=== PATIENT | female | born 1980 | race Caucasian/White ===

== ENCOUNTER 2017-04-14 15:03 | Emergency (ER) | payer MEDICARE, MEDICAID ==
[2017-04-14 15:09] VITALS: BP 129/85
[2017-04-14] MEDS ORDERED: CYCLOBENZAPRINE HCL 10 MG TABLET PO ONE (16:33)
[2017-04-14] MEDS ORDERED: KETOROLAC TROMETHAMINE INJ/PF 30 MG/1 ML SDV IM ONE (16:33)
--- NOTE | 2017-04-14 16:33 | ER Document Report ---
ED General - General Chief Complaint: Sore Throat Stated Complaint: BACK PAIN Time Seen by Provider: 04/14/17 16:08 TRAVEL OUTSIDE OF THE [place] IN LAST 30 DAYS: No - HPI Onset: Other - back pain has been for approx 3 days, left leg to her knee. she states it is consistent with her sciatica. Admits to nasal congestion and dry cough for a week since she moved into and apartment with "mold" thats has not been tested. Associated symptoms: Allergy/hay fever, Nonproductive cough, Rhinnorhea, Sore throat. denies: Chest pain, Fever, Shortness of breath - Related Data Allergies/Adverse Reactions: amoxicillin trihydrate [From Augmentin] Allergy (Severe, Verified 04/14/17 15:09 ) rash and swelling asenapine maleate [From Saphris] Allergy (Severe, Verified 04/14/17 15:09) suicidal ideation Potassium Clavulanate * [From Augmentin] Allergy (Severe, Verified 04/14/17 15: 09) rash and swelling Sulfa (Sulfonamide Antibiotics) Allergy (Mild, Verified 04/14/17 15:09) codeine [Codeine] Allergy (Unknown, Verified 04/14/17 15:09) rash sulfur [From Sulfur-8] Allergy (Unknown, Verified 04/14/17 15:09) Hallucinations Past Medical History - Social History Smoking Status: Never Smoker Family History: Reviewed & Not Pertinent Patient has suicidal ideation: No Patient has homicidal ideation: No Pulmonary Medical History: Denies: Hx Asthma Renal/ Medical History: Denies: Hx Peritoneal Dialysis Psychiatric Medical History: Reports: Hx Anxiety, Hx Bipolar Disorder, Hx Depression - anxiety Past Surgical History: Reports: Hx Section - x2, Hx Cholecystectomy, Hx Gynecologic Surgery - tubal, Hx Tubal Ligation - Immunizations Immunizations up to date: Yes Hx Diphtheria, Pertussis, Tetanus Vaccination: Yes Review of Systems - Review of Systems Constitutional: No symptoms reported EENT: See HPI Cardiovascular: No symptoms reported Respiratory: See HPI Gastrointestinal: No symptoms reported Musculoskeletal: See HPI Skin: No symptoms reported -: Yes All other systems reviewed and negative Physical Exam - Vital signs Vitals: Temp Pulse Resp BP Pulse Ox 98.2 F 102 H 20 129/85 H 98 04/14/17 15:08 04/14/17 15:08 04/14/17 15:08 04/14/17 15:08 04/14/17 15:08 - General General appearance: Appears well, Alert In distress: None - HEENT Head: Normocephalic, Atraumatic Eyes: Normal Conjunctiva: Normal Extraocular movements intact: Yes Eyelashes: Normal Pupils: PERRL Ears: Normal External canal: Normal Tympanic membrane: Normal Sinus: Normal Nasal: Normal Mouth/Lips: Normal Mucous membranes: Normal Pharynx: Normal. No: Peritonsillar abscess, Retropharyngeal abscess, Potential airway comprom. Neck: Normal - Respiratory Respiratory status: No respiratory distress Chest status: Nontender Breath sounds: Normal Chest palpation: Normal - Cardiovascular Rhythm: Regular Heart sounds: Normal auscultation, S1 appreciated, S2 appreciated Murmur: No Gallop: None auscultated Pulses: Normal: Radial Normal capillary refill: Yes - Back Back: Normal, Nontender. No: Deformity/step-off, CVA tenderness, Vertebra tenderness, Scars, Scoliosis, Wounds - Extremities General upper extremity: Normal inspection, Nontender, Normal color, Normal ROM , Normal strength, Normal temperature General lower extremity: Normal inspection, Nontender, Normal color, Normal ROM , Normal strength, Normal temperature, Normal weight bearing - Neurological Neuro grossly intact: Yes Cognition: Normal Orientation: AAOx4 Germain Coma Scale Eye Opening: Spontaneous Germain Coma Scale Verbal: Oriented Germain Coma Scale Motor: Obeys Commands Germain Coma Scale Total: 15 Course - Re-evaluation Re-evalutation: 04/14/17 21:16 The patient presents with low back pain without signs of spinal cord compression , cauda equina syndrome, infection, aneurysm, or other serious etiology. The patient is neurologically intact. Given the extremely low risk of these diagnoses further testing and evaluation for these possibilities does not appear to be indicated at this time. The patient has been instructed to return if the symptoms worsen or change in any way. Patient educated on management of with [id number] antihistamine, to move out of her home until cleared by a mold specialist and stay with family. Patient is agreeable with plan. - Vital Signs Vital signs: Temp Pulse Resp BP Pulse Ox 98.2 F 102 H 20 129/85 H 98 04/14/17 15:08 04/14/17 15:08 04/14/17 15:08 04/14/17 15:08 04/14/17 15:08 Discharge - Discharge Clinical Impression: Rhinitis Qualifiers: Rhinitis type: unspecified Chronicity: acute Qualified Code(s): J00 - Acute nasopharyngitis [common cold] Sciatica Qualifiers: Laterality: left Qualified Code(s): M54.32 - Sciatica, left side Condition: Good Disposition: HOME, SELF-CARE Instructions: Hay Fever ([facility]), OTC Antihistamines ([facility]) Additional Instructions: LOW BACK PAIN: Three out of every four people will have an episode of disabling back pain during their lifetime. Most commonly the pain is due to straining of the muscles and ligaments in the low back. Usual treatment includes: (1) Rest on a firm surface. Avoid lying on your stomach. (2) Ice pack the painful area. After a few days, gentle heat may be used intermittently to relax the area, or ice packs can be continued. (3) Medication may be needed -- muscle relaxers and antiinflammatory medicines are commonly used. (4) As the back improves, exercises are prescribed to strengthen the back and abdominal muscles. Your doctor will advise you on the proper care for your back at each stage in your recovery. You may be better in a few days -- or healing may take several weeks. If new symptoms of a "herniated disc" (radiation of pain, numbness, or tingling down the back of the leg or weakness in the leg) occur, you should be re-examined. Further testing may be necessary. PAIN MEDICATION INJECTION: You have received an injection of a pain medication. You should experience significant pain relief within 45 minutes. If this injection was a narcotic -- it will impair your judgement, slow your reaction time and make you sleepy (as well as relieve your pain). Narcotics also can cause nausea. You should not drive, work with machinery, or perform any task requiring mental alertness until all effects of the medication are gone -- six to eight hours. Do not take any alcohol, or sedatives, and do not take any other medication without checking with your physician. MUSCLE RELAXERS: Muscle relaxing medications are usually prescribed for acute muscle spasm or injury to the neck and back. They are often combined with antiinflammatory pain medication for increased relief. You may stop the muscle relaxer when the pain and stiffness have improved. Start the medication again if spasms recur. Muscle relaxers may cause drowsiness, especially with the first dose. Do not operate machinery or drive while under the effects of the medication. Most muscle relaxers last up to 24 hours. Do not combine the medication with alcohol. ICE PACKS: Apply ice packs frequently against the painful area. Many different schedules are recommended, such as "20 minutes on, 20 minutes off" or "one hour ice, two hours rest." If you need to work, you may need to go longer between ice treatments. You should plan to have the area ice packed AT LEAST one fourth of the time. The ice should be applied over the wrap, tape, or splint, or over a layer of cloth -- not directly against the skin. Some ice bags have a built-in cloth and can be put directly on the skin. WARM PACKS: After approximately two days, apply gentle heat (such as a heating pad or hot water bottle) for about 20 to 30 minutes about every two hours -- at least four times daily. Warmth and elevation will help you make a more rapid recovery , and will ease the pain considerably. Do not use HOT heat, and never apply heat for longer than 30 minutes. The continuous heat can invisibly damage skin and muscles -- even when no burn is seen on the surface. Damaged muscles can make you MORE sore. FOLLOW-UP CARE: If you have been referred to a physician for follow-up care, call the physician s office for an appointment as you were instructed or within the next two days. If you experience worsening or a significant change in your symptoms, notify the physician immediately or return to the Emergency Department at any time for re-evaluation. Prescriptions: Cyclobenzaprine HCl [Flexeril 10 mg Tablet] 10 mg PO TIDP PRN #15 tab PRN Reason: Ibuprofen [Motrin 800 mg Tablet] 800 mg PO Q8H PRN #30 tab PRN Reason: Methylprednisolone [Medrol Dosepack (4 mg/Tab) 21 Tab/Dosepak] 4 mg PO ASDIR PRN #21 tab.ds.pk PRN Reason: Referrals: YECENIA ALBA MD [NO LOCAL MD] - Follow up as needed
== END 2017-04-14 16:56 | disposition home or self-care (01) ==
LOC: ER 15:03
DX: J00 Acute nasopharyngitis [common cold] (principal); M54.42 Lumbago with sciatica, left side; R05 Cough; Z88.0 Allergy status to penicillin; Z88.2 Allergy status to sulfonamides; Z88.5 Allergy status to narcotic agent; Z88.8 Allergy status to other drugs, medicaments and biological substances; Z77.120 Contact with and (suspected) exposure to mold (toxic)
CPT/HCPCS: 99283; 96372; A9270; J1885

== ENCOUNTER 2017-06-19 08:14 | Emergency (ER) | payer MEDICARE, MEDICAID ==
[2017-06-19] MEDS ORDERED: KETOROLAC TROMETHAMINE INJ/PF 30 MG/1 ML SDV IV ONE (09:23)
[2017-06-19 09:40] LABS: ANION GAP 14 (5-19); BLOOD UREA NITROGEN 10 mg/dL (7-20); CARBON DIOXIDE 21 mmol/L (22-30); CHLORIDE 105 mmol/L (98-107); CREATINE KINASE 75 U/L (30-135); GLUCOSE 85 mg/dL (75-110); POTASSIUM 4.7 mmol/L (3.6-5.0); SODIUM 139.6 mmol/L (137-145)
--- NOTE | 2017-06-19 10:13 | ER Document Report ---
ED General - General Chief Complaint: Back Pain Stated Complaint: BACK PAIN Time Seen by Provider: 06/19/17 09:13 Information source: Patient Notes: Patient is a 37-year-old female who presents today with but she states is some chronic lower back pain. She recently moved here in 2 months ago and does not have a primary care physician. Patient states that she started to have some bilateral arm pain for the last 2 weeks. She denies any systemic symptoms such as fever, headache, neck pain, rash, vomiting, fatigue, or diarrhea. She does state that she discontinue taking Prozac 3 weeks ago but was started on Lexapro. Patient denies any family history of autoimmune disorders or diseases. TRAVEL OUTSIDE OF THE [place] IN LAST 30 DAYS: No - HPI Onset: Other - See above Onset/Duration: Gradual Quality of pain: Achy Severity: Mild Pain Level: 1 Associated symptoms: Other - See above Exacerbated by: Movement Relieved by: Remaining still Similar symptoms previously: Yes Recently seen / treated by doctor: Yes - Related Data Allergies/Adverse Reactions: amoxicillin trihydrate [From Augmentin] Allergy (Severe, Verified 06/19/17 09:19 ) rash and swelling asenapine maleate [From Saphris] Allergy (Severe, Verified 06/19/17 09:19) suicidal ideation Potassium Clavulanate * [From Augmentin] Allergy (Severe, Verified 06/19/17 09: 19) rash and swelling Sulfa (Sulfonamide Antibiotics) Allergy (Mild, Verified 06/19/17 09:19) codeine [Codeine] Allergy (Unknown, Verified 06/19/17 09:19) rash sulfur [From Sulfur-8] Allergy (Unknown, Verified 06/19/17 09:19) Hallucinations Past Medical History - General Information source: Patient - Social History Smoking Status: Never Smoker Cigarette use (# per day): No Chew tobacco use (# tins/day): No Smoking Education Provided: No Frequency of alcohol use: None Drug Abuse: None Family History: Reviewed & Not Pertinent Patient has suicidal ideation: No Patient has homicidal ideation: No Pulmonary Medical History: Denies: Hx Asthma Renal/ Medical History: Denies: Hx Peritoneal Dialysis Psychiatric Medical History: Reports: Hx Anxiety, Hx Bipolar Disorder, Hx Depression - anxiety Past Surgical History: Reports: Hx Section - x2, Hx Cholecystectomy, Hx Gynecologic Surgery - tubal, Hx Tubal Ligation - Immunizations Immunizations up to date: Yes Hx Diphtheria, Pertussis, Tetanus Vaccination: Yes Review of Systems - Review of Systems Constitutional: denies: Fever EENT: denies: Eye discharge, Nose discharge Cardiovascular: denies: Chest pain, Palpitations Respiratory: denies: Short of breath Gastrointestinal: denies: Vomiting Genitourinary: denies: Dysuria Musculoskeletal: denies: Leg swelling Skin: Other - no hives. denies: Rash Neurological/Psychological: Other - no slurred speech -: Yes All other systems reviewed and negative Physical Exam - Vital signs Vitals: Temp Pulse Resp BP Pulse Ox 98 F 71 16 125/79 97 06/19/17 08:25 06/19/17 08:25 06/19/17 08:25 06/19/17 08:25 06/19/17 08:25 Notes: Reviewed vital signs and nursing note as charted by RN. CONSTITUTIONAL: Alert and oriented and responds appropriately to questions. Well -appearing; well-nourished HEAD: Normocephalic; atraumatic EYES: Sclerae non-icteric ENT: Normal nose; no rhinorrhea; moist mucous membranes; pharynx without lesions noted NECK: Supple without meningismus; non-tender CARD: Regular rate and rhythm; no murmurs RESP: Normal chest excursion without splinting or tachypnea; breath sounds clear and equal bilaterally ABD/GI: Normal bowel sounds; non-distended; soft, non-tender BACK: The back appears normal and is non-tender to palpation, there is no CVA tenderness EXT: Normal ROM in all joints; non-tender to palpation; no cyanosis, no effusions, no edema SKIN: Normal color for age and race; warm; dry; good turgor; capillary refill < 2 seconds; no acute lesions noted NEURO: CN II through XII are intact. Moves all extremities equally; Motor and sensory function intact PSYCH: The patient's mood and manner are appropriate. Grooming and personal hygiene are appropriate Course - Re-evaluation Re-evalutation: 06/19/17 10:10 Given the above history and physical examination, we will obtain a basic chemistry, total CK, and a calcium level. I would like to evaluate for electrolyte causes of possible vascular skeletal pain. Patient has no systemic symptoms and vital signs are stable. She has no lower extremity weakness, with 2+ patellar reflexes and no incontinence. I do not believe the patient has any spinal cord compression, epidural abscess, or discitis. 06/19/17 10:13 Labs and CK as recorded with a normal calcium level. No change in exam. I will help the patient expedite a primary care follow-up physician. - Vital Signs Vital signs: Temp Pulse Resp BP Pulse Ox 98 F 71 16 125/79 97 06/19/17 08:25 06/19/17 08:25 06/19/17 08:25 06/19/17 08:25 06/19/17 08:25 - Laboratory Result Diagrams: 06/19/17 09:07 Laboratory results interpreted by me: 06/19/17 09:07 Carbon Dioxide 21 L Discharge - Discharge Clinical Impression: Muscular cramp Low back pain Qualifiers: Chronicity: acute Back pain laterality: unspecified Sciatica presence: without sciatica Qualified Code(s): M54.5 - Low back pain Condition: Good Disposition: HOME, SELF-CARE Additional Instructions: Please come back immediately with any increased pain, limb swelling, fever, rash , or any other acute problems. Please follow-up with the primary care physician that we have discussed. Referrals: LASHONDA JO MD [ACTIVE STAFF] - Follow up as needed
[2017-06-19 10:40] VITALS: BP 126/72
== END 2017-06-19 10:40 | disposition home or self-care (01) ==
LOC: ER 08:14
DX: R25.2 Cramp and spasm (principal); M54.5 Low back pain; Z88.0 Allergy status to penicillin; Z88.2 Allergy status to sulfonamides; Z90.49 Acquired absence of other specified parts of digestive tract; Z98.51 Tubal ligation status
CPT/HCPCS: 99283; 96374; 36415; 82550; 81025; 80048; J1885

== ENCOUNTER → 2017-07-04 | Outpatient (CLI) | payer MEDICARE, MEDICAID ==
--- NOTE | 2017-07-04 16:58 | RADIOLOGY REPORT (SQ) ---
EXAM DESCRIPTION: LUMBAR SPINE COMPLETE COMPLETED DATE/TIME: 07/04/2017 4:30 pm REASON FOR STUDY: LUMBAGO WITH SCIATICA, LEFT SIDE M54.42 LUMBAGO WITH SCIATICA, LEFT SIDE COMPARISON: None. NUMBER OF VIEWS: Five views including obliques. TECHNIQUE: AP, lateral, oblique, and sacral radiographic images acquired of the lumbar spine. LIMITATIONS: None. FINDINGS: MINERALIZATION: Normal. SEGMENTATION: Normal. No transitional anatomy. ALIGNMENT: Normal. VERTEBRAE: Maintained height. No fracture or worrisome bone lesion. DISCS: Preserved height. No significant osteophytes or end plate irregularity. POSTERIOR ELEMENTS: Pedicles and facets are intact. No pars defect or posterior arch defects. Very mild bilateral facet arthropathy at L4-5 and L5-S1. HARDWARE: Clips right upper quadrant post cholecystectomy PARASPINAL SOFT TISSUES: Normal. PELVIS: Intact as visualized. No fractures or worrisome bone lesions. SI joints intact. OTHER: No other significant finding. IMPRESSION: Mild lower lumbar facet arthropathy. TECHNICAL DOCUMENTATION: JOB ID: [id number] [employer]- All Rights Reserved
== END ==
LOC: OD 16:09
PROVIDERS: ATTEND Internal Medicine
DX: M54.42 Lumbago with sciatica, left side (principal)
CPT/HCPCS: 72110

== ENCOUNTER 2017-07-08 14:02 | Emergency (ER) | payer MEDICARE, MEDICAID ==
[2017-07-08] MEDS ORDERED: KETOROLAC TROMETHAMINE INJ/PF 30 MG/1 ML SDV IV ONE (15:17)
[2017-07-08 15:23] LABS: AMORPHOUS SEDIMENT,URINE TRACE /HPF; APPEARANCE,URINE CLOUDY; BILIRUBIN,URINE NEGATIVE (NEGATIVE); GLUCOSE, URINE NEGATIVE (NEGATIVE); KETONES,URINE NEGATIVE (NEGATIVE); LEUKOCYTE ESTERASE,URINE SMALL (NEGATIVE); NITRITE,URINE NEGATIVE (NEGATIVE); PROTEIN,URINE NEGATIVE (NEGATIVE); URINE SPECIFIC GRAVITY 1.011; UROBILINOGEN,URINE NEGATIVE mg/dL (<2.0)
--- NOTE | 2017-07-08 15:32 | ER Document Report ---
ED General - General Chief Complaint: Back Pain Stated Complaint: RIGHT SIDE ABDOMINAL PAIN Time Seen by Provider: 07/08/17 15:02 Mode of Arrival: Ambulatory Information source: Patient Notes: Patient is a 37-year-old obese white female comes emergency room with 2 day onset of right flank pain right hip pain. Patient states that last week she saw her primary care provider was put on Levaquin 500 mg once daily for 10 days for the upper respiratory sinusitis infection and for ear infection. She also states that he took x-rays of her low back because she had been complaining of left-sided sciatica. Patient states this pain in her back started approximately 2 days ago denies any known trauma. She also states that she cannot sleep on her side either right or left because the pain is too intense and still lately on her back to sleep. Patient denies any nausea vomiting or diarrhea she also denies any hematuria TRAVEL OUTSIDE OF THE [place] IN LAST 30 DAYS: No - HPI Onset: Other - 2 days Onset/Duration: Sudden, Constant, Waxing and waning Quality of pain: Achy, Stabbing, Throbbing Severity: Moderate Associated symptoms: denies: Earache, Fever, Nausea, Vomiting, Weakness Exacerbated by: Movement, Walking, Other - Palpation Relieved by: Remaining still, Other - Laying on back Similar symptoms previously: No Recently seen / treated by doctor: Yes - Related Data Allergies/Adverse Reactions: amoxicillin trihydrate [From Augmentin] Allergy (Severe, Verified 07/08/17 14:09 ) rash and swelling asenapine maleate [From Saphris] Allergy (Severe, Verified 07/08/17 14:09) suicidal ideation Potassium Clavulanate * [From Augmentin] Allergy (Severe, Verified 07/08/17 14: 09) rash and swelling Sulfa (Sulfonamide Antibiotics) Allergy (Mild, Verified 07/08/17 14:09) codeine [Codeine] Allergy (Unknown, Verified 07/08/17 14:09) rash sulfur [From Sulfur-8] Allergy (Unknown, Verified 07/08/17 14:09) Hallucinations Past Medical History - Social History Smoking Status: Former Smoker Family History: Reviewed & Not Pertinent Pulmonary Medical History: Denies: Hx Asthma Renal/ Medical History: Denies: Hx Peritoneal Dialysis Psychiatric Medical History: Reports: Hx Anxiety, Hx Bipolar Disorder, Hx Depression - anxiety Past Surgical History: Reports: Hx Section - x2, Hx Cholecystectomy, Hx Gynecologic Surgery - tubal, Hx Tubal Ligation - Immunizations Immunizations up to date: Yes Hx Diphtheria, Pertussis, Tetanus Vaccination: Yes Review of Systems - Review of Systems Constitutional: No symptoms reported EENT: No symptoms reported Cardiovascular: No symptoms reported Respiratory: No symptoms reported Gastrointestinal: denies: Abdomen distended, Abdominal pain, Diarrhea, Nausea, Vomiting, Constipation Genitourinary: See HPI, Flank pain. denies: Burning, Dysuria, Discharge, Hematuria, Incontinence, Pain, Urgency, Retention Female Genitourinary: No symptoms reported Musculoskeletal: See HPI, Back pain, Muscle pain Skin: No symptoms reported Hematologic/Lymphatic: No symptoms reported Neurological/Psychological: No symptoms reported -: Yes All other systems reviewed and negative Physical Exam - Vital signs Vitals: Temp Pulse Resp BP Pulse Ox 98.6 F 105 H 18 133/79 H 98 07/08/17 14:07 07/08/17 14:07 07/08/17 14:07 07/08/17 14:07 07/08/17 14:07 - General General appearance: Appears well - HEENT Head: Normocephalic, Atraumatic Ears: Normal External canal: Normal Tympanic membrane: Normal Sinus: Normal. No: Tenderness Nasal: Normal. No: Purulent discharge Mouth/Lips: Normal Mucous membranes: Normal, Moist Pharynx: Normal. No: Peritonsillar abscess, Post nasal drainage, Retropharyngeal abscess, Tonsillar hypertrophy, Uvular edema, Potential airway comprom. Neck: No: Normal, Carotid bruit - Respiratory Respiratory status: No respiratory distress Chest status: Nontender Breath sounds: Normal. No: Rales, Rhonchi, Stridor, Wheezing Chest palpation: Normal - Cardiovascular Rhythm: Tachycardia Heart sounds: Normal auscultation - Abdominal Inspection: Normal Distension: No distension. No: Distended, Tympanitic Bowel sounds: Normal Tenderness: Nontender - Genitourinary External exam: Normal - Back Back: Tender, CVA tenderness. No: Normal, Nontender, Vertebra tenderness, Scars , Scoliosis - Neurological Neuro grossly intact: Yes Cognition: Normal Orientation: AAOx4 Germain Coma Scale Eye Opening: Spontaneous Germain Coma Scale Verbal: Oriented Dillon Coma Scale Motor: Obeys Commands Dillon Coma Scale Total: 15 Speech: Normal - Skin Skin Moisture: Dry Skin Color: Normal, Other - Physical inspection of the patient's back and abdomen show no signs of rash discoloration or any acute findings. Course - Vital Signs Vital signs: Temp Pulse Resp BP Pulse Ox 98.6 F 105 H 18 133/79 H 98 07/08/17 14:07 07/08/17 14:07 07/08/17 14:07 07/08/17 14:07 07/08/17 14:07 - Laboratory Result Diagrams: 07/08/17 15:45 07/08/17 15:45 Laboratory results interpreted by me: 07/08/17 07/08/17 07/08/17 15:00 15:45 15:45 RDW 14.5 H Glucose 73 L Urine Blood LARGE H Ur Leukocyte Esterase SMALL H - Diagnostic Test Radiology reviewed: Pending - CT results as per radiology showed no acute findings. - Transfer of Care Notes: 07/08/17 18:00 Re: Discussed with patient findings. Her labs are all normal her ESR and CRP are also normal even though patient has not experienced any kind of trauma feel this may be a pulled muscle in the mid to lower back. At this time I have informed her she will probably need to follow-up with her primary care doctor for MRI of the back considering she has had a history of sciatica on the left side. Patient states she has an appointment with her primary this week and will ask for a referral to have her MRI done. We will give her a few days worth of pain medication and muscle relaxer to see if this will reduce the intensity of this discomfort. Discharge - Discharge Clinical Impression: Spasm of muscle, back, Muscle tear Condition: Stable Instructions: Ice Packs ([facility]), Low Back Pain ([facility]), Muscle Strain ([facility]), Oral Narcotic Medication ([facility]) Additional Instructions: Home and rest. Medication as prescribed and only as needed for discomfort and pain to sleep. Continue with her [facility] as her primary care provided for you for your upper respiratory cold. As we discussed he will probably need an MRI of your back for further clarification of what may be causing this pain or discomfort. Highly recommend use ice also in the parts that hurt on the right side. He may also use moist heat alternating. Should you have any concerns or problems return to ER for recheck. Prescriptions: Cyclobenzaprine HCl [Flexeril 10 mg Tablet] 10 mg PO TIDP PRN #21 tablet PRN Reason: Pain Scale Of 2 Hydrocodone/Acetaminophen [Conception 7.5-325 mg Tablet] 1 tab PO Q4 PRN #12 tablet PRN Reason: For Back Pain Forms: Elevated Blood Pressure
[2017-07-08 16:14] LABS: ALANINE AMINOTRANSFERASE 35 U/L (9-52); ALBUMIN 4.5 g/dL (3.5-5.0); ALKALINE PHOSPHATASE 73 U/L (38-126); ANION GAP 11 (5-19); ASPARTATE AMINO TRANSFERASE 18 U/L (14-36); BILIRUBIN,DIRECT 0.3 mg/dL (0.0-0.4); BILIRUBIN,TOTAL 0.5 mg/dL (0.2-1.3); BLOOD UREA NITROGEN 12 mg/dL (7-20); C-REACTIVE PROTEIN 7.9 mg/L (<10.0); CALCIUM 9.7 mg/dL (8.4-10.2); CARBON DIOXIDE 25 mmol/L (22-30); CHLORIDE 106 mmol/L (98-107); CREATININE RESULT 1.03 mg/dL (0.52-1.25); GLUCOSE 73 mg/dL (75-110); POTASSIUM 4.1 mmol/L (3.6-5.0); SODIUM 142.1 mmol/L (137-145); TOTAL PROTEIN 7.4 g/dL (6.3-8.2)
[2017-07-08 16:27] LABS: ABSOLUTE BASOPHILS # (AUTO) 0.1 10^3/uL (0.0-0.2); ABSOLUTE EOSINOPHILS # (AUTO) 0.2 10^3/uL (0.0-0.6); ABSOLUTE LYMPHOCYTES (AUTO) 2.6 10^3/uL (0.5-4.7); ABSOLUTE MONOCYTES (AUTO) 0.6 10^3/uL (0.1-1.4); ABSOLUTE NEUT (AUTO) 6.2 10^3/uL (1.7-8.2); BASOPHILS % (AUTO) 0.6 % (0-2); EOSINOPHILS % (AUTO) 2.1 % (0-6); HEMATOCRIT 42.9 % (36.0-47.0); HEMOGLOBIN 14.6 g/dL (12.0-15.5); HGB HCT DIFFERENCE 0.9; LYMPHOCYTES % (AUTO) 26.7 % (13-45); MEAN CORPUSCULAR HEMOGLOBIN 28.7 pg (27.0-33.4); MEAN CORPUSCULAR HGB CONC 34.1 g/dL (32.0-36.0); MEAN CORPUSCULAR VOLUME 84 fl (80-97); MONOCYTES % (AUTO) 6.4 % (3-13); RED CELL DISTRIBUTION WIDTH 14.5 % (11.5-14.0); SEGMENTED NEUTROPHILS % (AUTO) 64.2 % (42-78); WHITE BLOOD COUNT 9.7 10^3/uL (4.0-10.5)
--- NOTE | 2017-07-08 16:43 | RADIOLOGY REPORT (SQ) ---
EXAM DESCRIPTION: CT ABD/PELVIS NO ORAL OR IV COMPLETED DATE/TIME: 07/08/2017 4:26 pm REASON FOR STUDY: right flank pain COMPARISON: None. TECHNIQUE: CT scan of the abdomen and pelvis performed without intravenous or oral contrast. Images reviewed with lung, soft tissue, and bone windows. Reconstructed coronal and sagittal MPR images revi ewed. All images stored on PACS. All CT scanners at this facility use dose modulation, iterative reconstruction, and/or weight based d osing when appropriate to reduce radiation dose to as low as reasonably achievable (ALARA). [facility]: Dose Right [facility]: CareDose [facility]: Dose Right [facility]: Teradose 4D [facility]: Smart Practice Fusion RADIATION DOSE: Up-to-date CT equipment and radiation dose reduction techniques were employed. CTDIv ol: 16.6 mGy. DLP: 867 mGy-cm.mGy. LIMITATIONS: None. FINDINGS: LOWER CHEST: No significant findings. No nodules or infiltrates. NON-CONTRASTED LIVER, SPLEEN, ADRENALS: Evaluation limited by lack of IV contrast. No identified sign ificant masses. PANCREAS: No masses. No peripancreatic inflammatory changes. GALLBLADDER: Surgically absent. RIGHT KIDNEY AND URETER: No solid masses. No significant calcification. No hydronephrosis or hydroure ter. LEFT KIDNEY AND URETER: No solid masses. No significant calcification. No hydronephrosis or hydrouret er. AORTA AND RETROPERITONEUM: No aneurysm. No retroperitoneal masses or adenopathy. BOWEL AND PERITONEAL CAVITY: No obvious masses or inflammatory changes. No free fluid. APPENDIX: Normal. PELVIS, BLADDER, AND ABDOMINAL WALL:No abnormal masses. No free fluid. Bladder normal. BONES: No significant findings. OTHER: No other significant finding. IMPRESSION: 1. No acute or suspicious abdominopelvic abnormality. Specifically, no evidence of ston es or urinary tract obstruction. Normal appendix. Status post cholecystectomy. TECHNICAL DOCUMENTATION: JOB ID: [id number] Quality ID # [id number]: Final reports with documentation of one or more dose reduction techniques (e.g., Au tomated exposure control, adjustment of the mA and/or kV according to patient size, use of iterative reconstruction technique) 2010 [employer]- All Rights Reserved
[2017-07-08 18:17] VITALS: BP 118/88
== END 2017-07-08 18:21 | disposition home or self-care (01) ==
LOC: ER 14:02
DX: M62.830 Muscle spasm of back (principal); M54.9 Dorsalgia, unspecified; M25.551 Pain in right hip; Z88.0 Allergy status to penicillin; Z88.2 Allergy status to sulfonamides; Z88.6 Allergy status to analgesic agent; Z90.49 Acquired absence of other specified parts of digestive tract; Z98.51 Tubal ligation status
CPT/HCPCS: 99284; 96374; 36415; 85025; 85652; 86140; 80053; 81001; 74176; J1885

== ENCOUNTER → 2017-07-19 | Outpatient (CLI) | payer MEDICARE, MEDICAID ==
--- NOTE | 2017-07-19 11:22 | RADIOLOGY REPORT (SQ) ---
EXAM DESCRIPTION: MRI LUMBAR SPINE WITHOUT COMPLETED DATE/TIME: 07/19/2017 11:06 am REASON FOR STUDY: LUMBAGO W/ SCIATICA (M54.42) M54.42 LUMBAGO WITH SCIATICA, LEFT SIDE COMPARISON: CT abdomen pelvis 07/08/2017 TECHNIQUE: Sagittal and Axial imaging includes T1, T2, STIR and gradient echo sequences. Coronal T2/ HASTE imaging. LIMITATIONS: None. FINDINGS: VISUALIZED UPPER ABDOMEN: Limited evaluation. No acute or suspicious findings suggested. SEGMENTATION: No transitional anatomy. The lowest well-developed disc space is labeled L5-S1. ALIGNMENT: Anatomic. VERTEBRAE: Intact. BONE MARROW: Normal. No marrow replacement or reactive changes. DISC SIGNAL: Normal. No significant abnormal signal or loss of height. POSTERIOR ELEMENTS: Generally intact. No pars defect evident. HARDWARE: None in the spine. CORD AND CONUS: Normal in size and signal intensity. Conus at the L1 level. SOFT TISSUES: No aortic aneurysm seen. No bulky retroperitoneal adenopathy or mass. No paraspinal mas s or fluid. T10-11: Mild bilateral facet arthropathy. No central or foraminal stenosis. T11-12: Mild bilateral facet arthropathy. No central or foraminal stenosis. T12-L1: No central or foraminal stenosis. L1-L2: Mild bilateral facet hypertrophy. No central or foraminal stenosis. L2-L3: Mild bilateral facet hypertrophy. No central or foraminal stenosis. L3-L4: Mild bilateral facet hypertrophy. No central or foraminal stenosis. L4-L5: Mild diffuse posterior disc bulging and moderate bilateral facet and ligament hypertrophy are present. Borderline central canal narrowing. Mild bilateral inferior foraminal narrowing without ex iting L4 nerve root impingement. There is a tiny annular tear in the left foraminal disc margin, bes t shown on sagittal T2 image 11. Sagittal STIR images demonstrate very mild bilateral facet joint ef fusions L5-S1: No central or foraminal stenosis SACRUM: Visualized upper sacrum intact. OTHER: No other significant findings. IMPRESSION: Borderline central canal narrowing at L4-5 from diffuse disc bulge and moderate facet an d ligament hypertrophy. Small left foraminal annular tear. Small bilateral facet joint effusions. TECHNICAL DOCUMENTATION: JOB ID: [id number]- All Rights Reserved
== END ==
LOC: RAD 09:59
PROVIDERS: ATTEND Internal Medicine
DX: M54.42 Lumbago with sciatica, left side (principal)
CPT/HCPCS: 72148

== ENCOUNTER 2017-08-12 14:43 | Emergency (ER) | payer MEDICARE, MEDICAID ==
[2017-08-12] MEDS ORDERED: LIDOCAINE 2% VISCOUS SOLN 20 ML UDCUP PO ONE (15:41)
--- NOTE | 2017-08-12 15:41 | ER Document Report ---
HPI - HPI Patient complains to provider of: ear pain mouth pain Pain Level: 3 Context: Is a 37-year-old female who presents emergency department complaining of bilateral ear pain left worse than the right is been for approximately 4 days. She denies any sharp stabbing pain with any blood or drainage from her ears. She admits to aphthous ulcers in her mouth but otherwise his sore throat is also associated. She admits to mild cough but denies any fevers or chills. - REPRODUCTIVE Reproductive: DENIES: : - DERM Skin Color: Normal Past Medical History - Social History Smoking Status: Current Every Day Smoker Family History: Reviewed & Not Pertinent Patient has suicidal ideation: No Patient has homicidal ideation: No Pulmonary Medical History: Denies: Hx Asthma Renal/ Medical History: Denies: Hx Peritoneal Dialysis Psychiatric Medical History: Reports: Hx Anxiety, Hx Bipolar Disorder, Hx Depression - anxiety Past Surgical History: Reports: Hx Section - x2, Hx Cholecystectomy, Hx Gynecologic Surgery - tubal, Hx Tubal Ligation - Immunizations Immunizations up to date: Yes Hx Diphtheria, Pertussis, Tetanus Vaccination: Yes Vertical Provider Document - INFECTION CONTROL TRAVEL OUTSIDE OF THE [place] IN LAST 30 DAYS: No - HEENT HEENT: Atraumatic, Normocephalic, PERRLA, Tympanic Membrane Red, Tympanic Membrane Bulging. negative: Conjuctival Injection, Pharyngeal Exudate, Pharyngeal Tenderness, Pharyngeal Erythema - NECK Neck: Normal Inspection, Other. negative: Lymphadenopathy-Left, Lymphadenopathy -Right - RESPIRATORY Respiratory: Breath Sounds Normal, No Respiratory Distress, Chest Non-Tender O2 Sat by Pulse Oximetry: 95 - CARDIOVASCULAR Cardiovascular: Regular Rate, Regular Rhythm, No Murmur Pulses: Normal: Radial - NEURO Level of Consciousness: Awake, Alert, Appropriate Motor/Sensory: No Motor Deficit, No Sensory Deficit - DERM Integumentary: Warm, Dry, No Rash Course - Re-evaluation Re-evalutation: 08/12/17 15:30 Patient is a 37-year-old female is hemodynamically stable, no acute distress afebrile. Presentation today is consistent with bilateral otitis media. Will discharge home on p.o. antibiotics with instruction to follow-up with primary care recheck. - Vital Signs Vital signs: Temp Pulse Resp BP Pulse Ox 98.3 F 94 14 120/88 H 95 08/12/17 14:51 08/12/17 14:51 08/12/17 14:51 08/12/17 14:51 08/12/17 14:51 Discharge - Discharge Clinical Impression: Aphthous ulcer of mouth Otitis media Qualifiers: Otitis media type: unspecified Chronicity: acute Qualified Code(s): H66.90 - Otitis media, unspecified, unspecified ear Condition: Good Disposition: HOME, SELF-CARE Instructions: Otitis Media ([facility]) Additional Instructions: Please take antibiotics as prescribed. Please follow-up with your primary care provider in 3-5 days. Prescriptions: Clindamycin HCl 450 mg PO TID 7 Days capsule Ibuprofen [Motrin 800 mg Tablet] 800 mg PO Q8H PRN #30 tab PRN Reason: Referrals: JOVON CORDOVA MD [COMMUNITY BASED STAFF] - Follow up as needed
[2017-08-12] MEDS ORDERED: CLINDAMYCIN HCL 150 MG CAPSULE PO ONE (15:49)
[2017-08-12] MEDS ORDERED: IBUPROFEN 800 MG TABLET PO ONE (15:51)
[2017-08-12 16:09] VITALS: BP 124/90
== END 2017-08-12 16:02 | disposition home or self-care (01) ==
LOC: ER 14:43
DX: H66.90 Otitis media, unspecified, unspecified ear (principal); K12.0 Recurrent oral aphthae; F17.200 Nicotine dependence, unspecified, uncomplicated; Z90.49 Acquired absence of other specified parts of digestive tract; Z98.51 Tubal ligation status
CPT/HCPCS: 99282

== ENCOUNTER 2017-09-11 17:55 | Emergency (ER) | payer MEDICARE, MEDICAID ==
[2017-09-11 18:05] VITALS: BP 115/79
--- NOTE | 2017-09-11 19:28 | ER Document Report ---
ED Respiratory Problem - General Chief Complaint: Sinus Congestion Stated Complaint: EAR ACHE SORE THROAT Time Seen by Provider: 09/11/17 19:01 Mode of Arrival: Ambulatory Information source: Patient, Friend Notes: Patient is a 37-year-old female comes emergency room with a 5-7 day onset of congestion runny nose and cough. She is also developed a sore throat and has had white spots on the back. Patient has done a 4 day course of clindamycin from antibiotic she had left over still feels like she is getting better but not totally. She has had off-and-on again fevers. She has had a productive greenish yellow cough. TRAVEL OUTSIDE OF THE [place] IN LAST 30 DAYS: No - HPI Patient complains to provider of: Cough Onset: Last week Duration: Worse/persistent Initiating Event: URI Quality of pain: No pain Severity: Moderate Pain Level: 2 Context: denies: DVT, Factor V Leiden, Hx asthma, Hx CHF, Hx COPD, Malignancy, , Recent cardiac event, Recent foreign travel, Recent long distance trvl , Recent immobilization, Recent surgery, Smoker, Other Short of Breath: Mild Cough: Nonproductive Sputum color: denies: Brown, Clear, Creamy, Lutz, Green, [place] tinged, Red (blood ), Red Specks, Rust, Small Clots, Knox, White, Yellow Associated symptoms: Cough, Earache, Facial pain, Fever, Runny nose Similar symptoms previously: Yes Recently seen / treated by doctor: No - Related Data Allergies/Adverse Reactions: amoxicillin trihydrate [From Augmentin] Allergy (Severe, Verified 09/11/17 17:58 ) rash and swelling asenapine maleate [From Saphris] Allergy (Severe, Verified 17 17:58) suicidal ideation Potassium Clavulanate * [From Augmentin] Allergy (Severe, Verified 17 17: 58) rash and swelling Sulfa (Sulfonamide Antibiotics) Allergy (Mild, Verified 09/11/17 17:58) codeine [Codeine] Allergy (Unknown, Verified 09/11/17 17:58) rash sulfur [From Sulfur-8] Allergy (Unknown, Verified 09/11/17 17:58) Hallucinations Past Medical History - General Information source: Patient, Relative - Social History Smoking Status: Never Smoker Cigarette use (# per day): No Chew tobacco use (# tins/day): No Smoking Education Provided: No Frequency of alcohol use: None Drug Abuse: None Family History: Reviewed & Not Pertinent Pulmonary Medical History: Denies: Hx Asthma Renal/ Medical History: Denies: Hx Peritoneal Dialysis Psychiatric Medical History: Reports: Hx Anxiety, Hx Bipolar Disorder, Hx Depression - anxiety Past Surgical History: Reports: Hx Section - x2, Hx Cholecystectomy, Hx Gynecologic Surgery - tubal, Hx Tubal Ligation - Immunizations Immunizations up to date: Yes Hx Diphtheria, Pertussis, Tetanus Vaccination: Yes Review of Systems - Review of Systems Constitutional: No symptoms reported EENT: No symptoms reported Cardiovascular: No symptoms reported Respiratory: No symptoms reported, Cough Gastrointestinal: No symptoms reported Genitourinary: No symptoms reported Female Genitourinary: No symptoms reported Musculoskeletal: No symptoms reported Skin: No symptoms reported Hematologic/Lymphatic: No symptoms reported Neurological/Psychological: No symptoms reported -: Yes All other systems reviewed and negative Physical Exam - Vital signs Vitals: Temp Pulse Resp BP Pulse Ox 98.7 F 83 16 115/79 100 09/11/17 18:04 09/11/17 18:04 09/11/17 18:04 09/11/17 18:04 09/11/17 18:04 Interpretation: Normal - General General appearance: Alert - HEENT Head: Normocephalic, Atraumatic Eyes: Normal Pupils: PERRL Tympanic membrane: Bulging Sinus: Frontal, Maxillary, Swelling, Tenderness Nasal: Purulent discharge, Swelling Mouth/Lips: Normal Mucous membranes: Moist Pharynx: Post nasal drainage Neck: Normal - Respiratory Respiratory status: No respiratory distress Chest status: Nontender Breath sounds: Normal. No: Decreased air movement, Nonproductive cough, Productive cough, Rales, Rhonchi, Stridor, Wheezing, Other Chest palpation: Normal - Cardiovascular Rhythm: Regular Heart sounds: Normal auscultation Murmur: No - Neurological Cognition: Normal Orientation: AAOx4 Hollis Coma Scale Eye Opening: Spontaneous Germain Coma Scale Verbal: Oriented Hollis Coma Scale Motor: Obeys Commands Germain Coma Scale Total: 15 Speech: Normal - Skin Skin Temperature: Warm Skin Moisture: Dry Skin Color: Normal, [place] Course - Vital Signs Vital signs: Temp Pulse Resp BP Pulse Ox 98.7 F 83 16 115/79 100 09/11/17 18:04 09/11/17 18:04 09/11/17 18:04 09/11/17 18:04 09/11/17 18:04 - Transfer of Care Notes: 09/11/17 19:28 Patient has been displaying enough symptoms and given the fact that she has been on clindamycin for 3-4 days and getting better feels or carrying on with the treatment. We will place her back on the clindamycin and we will also place her on steroid pack and some Sudafed. Discharge - Discharge Clinical Impression: Sinusitis Qualifiers: Sinusitis location: maxillary Chronicity: acute Recurrence: non-recurrent Qualified Code(s): J01.00 - Acute maxillary sinusitis, unspecified Pharyngitis Qualifiers: Pharyngitis/tonsillitis etiology: other specified organisms Qualified Code(s): J02.8 - Acute pharyngitis due to other specified organisms Condition: Good Disposition: HOME, SELF-CARE Instructions: Sinusitis ([facility]), Sore Throat ([facility]) Additional Instructions: Home rest. Medications prescribed. Complete the whole course of the clindamycin. Use nasal saline 3 4 times a day to keep the nose moist and secretions thin. Return to ER for any concerns or problems. Tylenol alternating Motrin for aches pains and fever. Prescriptions: Clindamycin HCl 300 mg PO QID #40 capsule Methylprednisolone [Medrol Dosepack (4 mg/Tab) 21 Tab/Dosepak] 4 mg PO ASDIR PRN #21 tab.ds.pk PRN Reason: Pseudoephedrine HCl [Sudafed 12-Hour] 120 mg PO BID #20 tablet.er
== END 2017-09-11 20:06 | disposition home or self-care (01) ==
LOC: ER 17:55
DX: J01.00 Acute maxillary sinusitis, unspecified (principal); J02.8 Acute pharyngitis due to other specified organisms; R09.81 Nasal congestion; R09.89 Other specified symptoms and signs involving the circulatory and respiratory systems; R05 Cough
CPT/HCPCS: 99282

== ENCOUNTER 2017-10-30 11:24 | Emergency (ER) | payer MEDICARE, MEDICAID ==
[2017-10-30 13:28] LABS: ABSOLUTE BASOPHILS # (AUTO) 0.2 10^3/uL (0.0-0.2); ABSOLUTE EOSINOPHILS # (AUTO) 0.2 10^3/uL (0.0-0.6); ABSOLUTE LYMPHOCYTES (AUTO) 2.8 10^3/uL (0.5-4.7); ABSOLUTE MONOCYTES (AUTO) 0.7 10^3/uL (0.1-1.4); ABSOLUTE NEUT (AUTO) 7.2 10^3/uL (1.7-8.2); BACTERIA (WET MOUNT) 4+ BACTERIA SEEN; BASOPHILS % (AUTO) 1.4 % (0-2); EOSINOPHILS % (AUTO) 1.6 % (0-6); EPITHELIALS (WET MOUNT) 3+ EPITHELIALS SEEN; HEMATOCRIT 46.2 % (36.0-47.0); HEMOGLOBIN 15.4 g/dL (12.0-15.5); LYMPHOCYTES % (AUTO) 25.2 % (13-45); MEAN CORPUSCULAR HEMOGLOBIN 28.4 pg (27.0-33.4); MEAN CORPUSCULAR HGB CONC 33.3 g/dL (32.0-36.0); MEAN CORPUSCULAR VOLUME 85 fl (80-97); MONOCYTES % (AUTO) 6.3 % (3-13); PLATELET COUNT 331 10^3/uL (150-450); RBCS (WET MOUNT) FEW RBCS SEEN; RED BLOOD COUNT 5.43 10^6/uL (3.72-5.28); RED CELL DISTRIBUTION WIDTH 15.5 % (11.5-14.0); SEGMENTED NEUTROPHILS % (AUTO) 65.5 % (42-78); T.VAGINALIS (WET MOUNT) NO TRICHOMONAS SEEN; TOTAL CELLS COUNTED % (AUTO) 100 %; WBCS (WET MOUNT) FEW WBCS SEEN; YEAST (WET MOUNT) YEAST SEEN
[2017-10-30 13:36] LABS: APPEARANCE,URINE CLEAR; BILIRUBIN,URINE NEGATIVE (NEGATIVE); COLOR,URINE STRAW; GLUCOSE, URINE NEGATIVE (NEGATIVE); KETONES,URINE NEGATIVE (NEGATIVE); LEUKOCYTE ESTERASE,URINE NEGATIVE (NEGATIVE); NITRITE,URINE NEGATIVE (NEGATIVE); PROTEIN,URINE NEGATIVE (NEGATIVE); URINE SPECIFIC GRAVITY 1.003; UROBILINOGEN,URINE NEGATIVE mg/dL (<2.0)
[2017-10-30 13:45] LABS: A TYPE INFLUENZA AG NEGATIVE (NEGATIVE); B INFLUENZA AG NEGATIVE (NEGATIVE)
[2017-10-30 13:50] LABS: ALANINE AMINOTRANSFERASE 40 U/L (9-52); ALBUMIN 4.6 g/dL (3.5-5.0); ALKALINE PHOSPHATASE 66 U/L (38-126); ANION GAP 10 (5-19); ASPARTATE AMINO TRANSFERASE 23 U/L (14-36); BILIRUBIN,DIRECT 0.2 mg/dL (0.0-0.4); BILIRUBIN,TOTAL 0.5 mg/dL (0.2-1.3); BLOOD UREA NITROGEN 11 mg/dL (7-20); CALCIUM 9.7 mg/dL (8.4-10.2); CARBON DIOXIDE 21 mmol/L (22-30); CHLORIDE 108 mmol/L (98-107); GLUCOSE 81 mg/dL (75-110); LIPASE 118.9 U/L (23-300); POTASSIUM 4.3 mmol/L (3.6-5.0); SODIUM 139.1 mmol/L (137-145); TOTAL PROTEIN 7.5 g/dL (6.3-8.2)
--- NOTE | 2017-10-30 14:06 | RADIOLOGY REPORT (SQ) ---
EXAM DESCRIPTION: U/S NON-OB PELVIS TV W/O DOP COMPLETED DATE/TIME: 10/30/2017 1:42 pm REASON FOR STUDY: vaginal pain, stomach pain COMPARISON: Abdominal and pelvic CT scan dated July 2017 TECHNIQUE: Dynamic and static grayscale images acquired of the pelvis via transvaginal approach and recorded on PACS. Additional selected color Doppler and spectral images recorded. LIMITATIONS: None. FINDINGS: UTERUS: A small uterine fibroid is identified measuring 3.9 x 3.2 x 3.7 cm in diameters. ENDOMETRIAL STRIPE: No focal or generalized thickening. No masses. CERVIX: Small nabothian cyst is identified. RIGHT OVARY: Right ovary is not visualized. LEFT OVARY: Left ovary is not visualized. FREE FLUID: None noted. OTHER: No other significant finding. MEASUREMENTS: UTERUS: 9.9 x 5.5 x 5.3 cm ENDOMETRIAL STRIPE: 11 mm IMPRESSION: Somewhat limited study as noted above as neither ovary was visualized. Small uterine fi broid. Other findings as noted above TECHNICAL DOCUMENTATION: JOB ID: [id number]- All Rights Reserved
--- NOTE | 2017-10-30 14:23 | ER Document Report ---
ED General - General Chief Complaint: Vaginal Itching Stated Complaint: VAGINAL PAIN Time Seen by Provider: 10/30/17 12:45 Mode of Arrival: Ambulatory Information source: Patient TRAVEL OUTSIDE OF THE [place] IN LAST 30 DAYS: No - HPI Notes: 37-year-old female presents today with complaints of lower abdominal pain, vaginal discharge and itching 2 days. Reports she has also had vaginal discharge x 1 day. Denies any vaginal bleeding. Denies any fevers or chills. Denies any chest pain, shortness of breath, nausea, vomiting, diarrhea, or back pain. Reports symptoms are progressive. surgeries. Pain 1/10, cramping. is not on any kind of control. Denies fevers or chills. Denies any trauma. No otc meds have been tried. Does not have an OBGYN. Eating and drinking without issues. - Related Data Allergies/Adverse Reactions: amoxicillin trihydrate [From Augmentin] Allergy (Severe, Verified 10/30/17 11:31 ) rash and swelling asenapine maleate [From Saphris] Allergy (Severe, Verified 10/30/17 11:31) suicidal ideation Potassium Clavulanate * [From Augmentin] Allergy (Severe, Verified 10/30/17 11: 31) rash and swelling Sulfa (Sulfonamide Antibiotics) Allergy (Mild, Verified 10/30/17 11:31) codeine [Codeine] Allergy (Unknown, Verified 10/30/17 11:31) rash sulfur [From Sulfur-8] Allergy (Unknown, Verified 10/30/17 11:31) Hallucinations Past Medical History - General Information source: Patient - Social History Smoking Status: Never Smoker Chew tobacco use (# tins/day): No Frequency of alcohol use: None Drug Abuse: None Family History: Reviewed & Not Pertinent Patient has suicidal ideation: No Patient has homicidal ideation: No Pulmonary Medical History: Denies: Hx Asthma Renal/ Medical History: Denies: Hx Peritoneal Dialysis Psychiatric Medical History: Reports: Hx Anxiety, Hx Bipolar Disorder, Hx Depression - anxiety Past Surgical History: Reports: Hx Section - x2, Hx Cholecystectomy, Hx Gynecologic Surgery - tubal, Hx Tubal Ligation - Immunizations Immunizations up to date: Yes Hx Diphtheria, Pertussis, Tetanus Vaccination: Yes Review of Systems - Review of Systems Constitutional: No symptoms reported EENT: No symptoms reported Cardiovascular: No symptoms reported Respiratory: No symptoms reported Gastrointestinal: Other - suprapubic abdominal tenderness Genitourinary: No symptoms reported Female Genitourinary: See HPI Musculoskeletal: No symptoms reported Skin: No symptoms reported Hematologic/Lymphatic: No symptoms reported Neurological/Psychological: No symptoms reported Physical Exam - Vital signs Vitals: Temp Pulse Resp BP Pulse Ox 98.1 F 87 20 124/89 H 95 10/30/17 11:37 10/30/17 11:37 10/30/17 11:37 10/30/17 11:37 10/30/17 11:37 - Notes Notes: PHYSICAL EXAMINATION: GENERAL: Well-appearing, well-nourished and in no acute distress. HEAD: Atraumatic, normocephalic. EYES: Pupils equal round and reactive to light, extraocular movements intact, conjunctiva are normal. ENT: Nares patent, oropharynx clear without exudates. Moist mucous membranes. NECK: Normal range of motion, supple without lymphadenopathy LUNGS: Breath sounds clear to auscultation bilaterally and equal. No wheezes rales or rhonchi. HEART: Regular rate and rhythm without murmurs ABDOMEN: Soft, nontender, nondistended abdomen. No guarding, no rebound. No masses appreciated. suprapubic tenderness Female : deferred, Musculoskeletal: Normal range of motion, no pitting or edema. No cyanosis. NEUROLOGICAL: Cranial nerves grossly intact. Normal speech, normal gait. Normal sensory, motor exams PSYCH: Normal mood, normal affect. SKIN: Warm, Dry, normal turgor, no rashes or lesions noted. Course - Re-evaluation Re-evalutation: Rechecked the patient who is resting comfortably. On re-exam, patient is symptomatically improved. Discussed the results of the labs/radiology as well as the diagnosis at great length. Ultrasound negative for any acute findings besides a uterine cyst. Discussed with patient that she did test positive for bacterial vaginosis as well as yeast infection. Pending GC urine. Discussed importance of practicing safe sex, using barrier method such as condoms. Start Flagyl, twice a day for 7 days. Advised to not drink while taking medications that will induce nausea and vomiting. eat yogurt daily to prevent loose stool. Follow-up with PCP within 3 days.Discussed the need to return to the ER for any new or worsening sx. Patient understands to take the Rx as directed. All questions answered. Patient comfortable with the decision to go home. 10/30/17 16:30 - Vital Signs Vital signs: Temp Pulse Resp BP Pulse Ox 98.0 F 82 16 132/83 H 99 10/30/17 15:24 10/30/17 15:24 10/30/17 15:24 10/30/17 15:24 10/30/17 15:24 - Laboratory Result Diagrams: 10/30/17 13:05 10/30/17 13:05 Laboratory results interpreted by me: 10/30/17 10/30/17 13:05 13:05 WBC 11.0 H RBC 5.43 H RDW 15.5 H Chloride 108 H Carbon Dioxide 21 L Discharge - Discharge Clinical Impression: Bacterial vaginosis, Vulvovaginitis danielito albicans Condition: Good Disposition: HOME, SELF-CARE Instructions: Metronidazole ([facility]) Additional Instructions: VAGINOSIS, BACTERIAL: Your exam shows you have bacterial vaginosis. This condition is due to an overgrowth of bacteria in the vagina. Symptoms may include vaginal itching or pain, a smelly discharge, and sometimes burning with urination. Normally this is not transmitted by sexual contact. Vaginosis can be treated with oral or topical antibiotics. Metronidazole ( Flagyl) pills are usually effective. Topical vaginal creams include Cleocin and Metro-Gel. You should avoid sexual contact until your symptoms are all better. Call the doctor if you develop pelvic pain, fever, or problems with urination, or if you don't improve as expected. VAGINAL YEAST INFECTION: You have evidence of a yeast infection -- called "danielito." A vaginal yeast infection often causes itching and discharge. While not dangerous, it can be very unpleasant. A yeast infection often follows the use of powerful antibiotics. It is more likely to occur in diabetics. The treatment now is usually a single pill of Diflucan, but also an antifungal cream or suppository may be used for a few days. You do not need to avoid sexual intercourse. Recurrences are common. You can make a recurrence less likely by wearing cotton underwear and avoiding tight clothing. For mild recurrences, you can try [id number] creams or suppositories that are made specifically for yeast. If the symptoms do not resolve, you should follow up for re-examination. Sometimes treatment of the sexual partner is necessary if infections are recurrent. FLUCONAZOLE: Fluconazole (Diflucan) is an antifungal drug. It is useful for serious fungal infections, but is also excellent for oral or vaginal yeast infections. Diflucan interacts with some medicines. This is a concern if you are taking anticoagulants (such as Coumadin), phenytoin (Dilantin), cyclosporin, or oral hypoglycemics (such as tolbutamide, Orinase, glipizide, Glucotrol, glyburide, DiaBeta, Glynase, and Micronase). Be sure the doctor knows if you are taking one of these medicines. We don't know how Diflucan affects . If you are planning to become , discuss this with your doctor. Diflucan has few side effects. Minor side effects may include nausea, headache, or diarrhea. Call the doctor if you develop a skin rash, shortness of breath, or other new symptoms. Chlamydia gonorrhea results are still pending at this time. FOLLOW-UP CARE: If you have been referred to a physician for follow-up care, call the physician s office for an appointment as you were instructed or within the next two days. If you experience worsening or a significant change in your symptoms, notify the physician immediately or return to the Emergency Department at any time for re-evaluation. Return immediately for any new or worsening symptoms. Follow up with primary care provider, call tomorrow to make followup appointment. Prescriptions: Fluconazole [Diflucan] 150 mg PO ONCE PRN #3 tablet PRN Reason: Metronidazole [Flagyl 500 mg Tablet] 500 mg PO BID #14 tablet Referrals: LASHONDA JO MD [Primary Care Provider] - Follow up in 3-5 days AURORA WOLFF MD [ACTIVE STAFF] - Follow up in 3-5 days
[2017-10-30] MEDS ORDERED: KETOROLAC TROMETHAMINE 60 MG/2 ML SDV IM ONE (14:59)
[2017-10-30 15:36] VITALS: BP 132/83
[2017-10-30 17:00] LABS: CHLAM PCR NOT DETECTED (NOT DETECT); GON PCR NOT DETECTED (NOT DETECT)
== END 2017-10-30 15:32 | disposition home or self-care (01) ==
LOC: ER 11:24
DX: N76.0 Acute vaginitis (principal); B97.89 Other viral agents as the cause of diseases classified elsewhere; B37.3 Candidiasis of vulva and vagina; R10.30 Lower abdominal pain, unspecified
CPT/HCPCS: 99284; 96372; 36415; 87210; 83690; 84703; 85025; 81025; 80053; 81001; 87491; 87591; 87804; 76830; J1885

== ENCOUNTER 2017-11-10 16:12 | Emergency (ER) | payer MEDICARE, MEDICAID ==
--- NOTE | 2017-11-10 17:46 | ER Document Report ---
HPI - HPI Pain Level: 5 Notes: Patient is a 37-year-old female who presents ED complaining of dental pain numbers 18 and 19 on the left side. Patient states that she had those 2 teeth pulled 6 days ago. Patient states that she was at the dentist office yesterday for increased pain and was told that she had a dry socket and was given treatment for it there and sent home with the necessary equipment and medicine for treatment at home. Patient states that she has continued pain. Patient is questioning if there is an infection in there. She has not noticed any obvious abscess or purulent discharge. No other concerns or complaints. see allergy list. Denies any headache, fever, head injury, neck pain, changes in vision/ speech/mentation/hearing, URI, sore throat, chest pain, palpitations, syncope, cough, shortness of breath, wheeze, dyspnea, abdominal pain, nausea/vomiting/ diarrhea, urinary retention, dysuria, hematuria, or rash. - ROS Systems Reviewed and Negative: Yes All other systems reviewed and negative - CONSTITUTIONAL Constitutional: DENIES: Fever, Chills - EENT EENT: DENIES: Sore Throat, Ear Pain, Eye problems - NEURO Neurology: DENIES: Headache, Weakness, Vision blurred, Dizzinesss / Vertigo - CARDIOVASCULAR Cardiovascular: DENIES: Chest pain - RESPIRATORY Respiratory: DENIES: Trouble Breathing, Coughing - GASTROINTESTINAL Gastrointestinal: DENIES: Abdominal Pain, Black / Bloody Stools - URINARY Urinary: DENIES: Dysuria, Urgency, Frequency - REPRODUCTIVE LMP: 1 week ago Reproductive: DENIES: : - MUSCULOSKELETAL Musculoskeletal: DENIES: Extremity pain Past Medical History - Social History Smoking Status: Never Smoker Family History: Reviewed & Not Pertinent Patient has suicidal ideation: No Patient has homicidal ideation: No Pulmonary Medical History: Denies: Hx Asthma Renal/ Medical History: Denies: Hx Peritoneal Dialysis Psychiatric Medical History: Reports: Hx Anxiety, Hx Bipolar Disorder, Hx Depression - anxiety Past Surgical History: Reports: Hx Section - x2, Hx Cholecystectomy, Hx Gynecologic Surgery - tubal, Hx Tubal Ligation - Immunizations Immunizations up to date: Yes Hx Diphtheria, Pertussis, Tetanus Vaccination: Yes Vertical Provider Document - CONSTITUTIONAL Agree With Documented VS: Yes Notes: PHYSICAL EXAMINATION: GENERAL: Well-appearing, well-nourished and in no acute distress. HEAD: Atraumatic, normocephalic. EYES: Pupils equal round and reactive to light, extraocular movements intact, sclera anicteric, conjunctiva are normal. ENT: EAC clear b/l. TM's intact b/l without erythema, fluid, or perforation. Nares patent and without discharge. oropharynx clear without exudates. No tonsilar hypertrophy or erythema. Moist mucous membranes. No sinus tenderness. Uvula midline. No palatine shift. No tongue protrusion. No respiratory compromise. Mouth: + appearance of recent surgical extraction to #18-19. Poor dentition. + mild decay and mild gingivitis. No obvious abscess or discharge noted. No facial swelling. + tenderness to tooth #18-19. NECK: Normal range of motion, supple without lymphadenopathy. No rigidity/ meningismus. LUNGS: Breath sounds clear to auscultation bilaterally and equal. No wheezes rales or rhonchi. HEART: Regular rate and rhythm without murmurs, rubs, gallops. NEUROLOGICAL: Cranial nerves grossly intact. Normal speech, normal gait. Normal sensory, motor exams PSYCH: Normal mood, normal affect. SKIN: Warm, Dry, normal turgor, no rashes or lesions noted. - INFECTION CONTROL TRAVEL OUTSIDE OF THE [place] IN LAST 30 DAYS: No - RESPIRATORY O2 Sat by Pulse Oximetry: 98 Course - Re-evaluation Re-evalutation: 11/10/17 17:48 Patient is an afebrile, well-hydrated, 37-year-old female who presents the ED with dental pain to numbers 18 and 19 status post extraction 6 days ago. Vitals are stable. PE is otherwise unremarkable. Advised patient that she needs to continue direction per the dentist that she saw yesterday. I will send her home with a prescription for penicillin as well as ED dispensed viscous lidocaine. Low suspicion for any meningitis, sepsis, peritonsillar/ pharyngeal abscess, respiratory compromise, Jian's, temporal arteritis, or other emergent systemic condition at this time. Patient is aware this condition can change from initial presentation and he needs to monitor symptoms closely. Conservative measures otherwise for symptoms. Call to schedule an appointment with a dentist for further evaluation and management. Recheck with your PCM this week as well. Return to the ED with any worsening/concerning symptoms otherwise as reviewed in discharge. Patient is in agreement. - Vital Signs Vital signs: Temp Pulse Resp BP Pulse Ox 98.1 F 99 16 120/85 98 11/10/17 16:39 11/10/17 16:39 11/10/17 16:39 11/10/17 16:39 11/10/17 16:39 Discharge - Discharge Clinical Impression: Toothache Condition: Stable Disposition: HOME, SELF-CARE Instructions: Clindamycin ([facility]) Additional Instructions: [place] and floss twice daily Maintain fluid intake Take antibiotics as directed Mouthwash, salt water gargles, peroxide rinse as needed Tylenol/ibuprofen as needed Recheck with PCM this week schedule an appointment with your dentist for further evaluation (sunday) Return to the ED with any worsening symptoms and/or development of fever, headache, facial swelling, swelling of lips/tongue/throat, trouble swallowing, drooling, hoarseness, neck pain/stiffness, chest pain, palpitations, syncope, shortness of breath, trouble breathing, abdominal pain, n/v/d, numbness/tingling , or other worsening symptoms that are concerning to you. Prescriptions: Clindamycin HCl [Cleocin 300 mg Capsule] 300 mg PO TID #30 capsule Referrals: [facility] [Provider Group] - Follow up as needed
[2017-11-10] MEDS ORDERED: LIDOCAINE 2% VISCOUS SOLN 20 ML UDCUP PO ONE (17:49)
[2017-11-10 18:08] VITALS: BP 119/80
== END 2017-11-10 18:08 | disposition home or self-care (01) ==
LOC: ER 16:12
DX: K08.89 Other specified disorders of teeth and supporting structures (principal)
CPT/HCPCS: 99283; J3490

== ENCOUNTER 2017-11-11 21:42 | Emergency (ER) | payer MEDICARE, MEDICAID ==
[2017-11-11] MEDS ORDERED: HYDROCODONE/ACETAMINOPHEN 5-325 MG (6 TAB/ER DISP) PO PRN (22:14)
[2017-11-11] MEDS ORDERED: CEFTRIAXONE INJ 1000 MG VIAL IM ONE (22:14)
[2017-11-11] MEDS ORDERED: LIDOCAINE 1% INJ-PF (10 MG/ML) 30 ML SDV INJ ONE (22:14)
--- NOTE | 2017-11-11 22:16 | ER Document Report ---
ED Oral Problem - General Chief Complaint: Mouth Problem Stated Complaint: MOUTH PAIN Time Seen by Provider: 11/11/17 22:06 Mode of Arrival: Ambulatory Information source: Patient Notes: Patient is a 37-year-old female who presents to the ER today for left lower tooth pain after she had teeth removed 5 days ago. Patient states that she was having pain to the left lower molar, so she went back to the dentist 3 days ago and they told her that she may be getting dry socket. Patient comes into the ER today with worsening pain and some swelling to the area. She denies any fevers or chills but admits to being hot and cold. TRAVEL OUTSIDE OF THE [place] IN LAST 30 DAYS: No - Related Data Allergies/Adverse Reactions: amoxicillin trihydrate [From Augmentin] Allergy (Severe, Verified 11/10/17 16:13 ) rash and swelling asenapine maleate [From Saphris] Allergy (Severe, Verified 11/10/17 16:13) suicidal ideation Potassium Clavulanate * [From Augmentin] Allergy (Severe, Verified 11/10/17 16: 13) rash and swelling Sulfa (Sulfonamide Antibiotics) Allergy (Mild, Verified 11/10/17 16:13) codeine [Codeine] Allergy (Unknown, Verified 11/10/17 16:13) rash sulfur [From Sulfur-8] Allergy (Unknown, Verified 11/10/17 16:13) Hallucinations Past Medical History - General Information source: Patient - Social History Smoking Status: Unknown if Ever Smoked Family History: Reviewed & Not Pertinent Pulmonary Medical History: Denies: Hx Asthma Renal/ Medical History: Denies: Hx Peritoneal Dialysis Psychiatric Medical History: Reports: Hx Anxiety, Hx Bipolar Disorder, Hx Depression - anxiety Past Surgical History: Reports: Hx Section - x2, Hx Cholecystectomy, Hx Gynecologic Surgery - tubal, Hx Tubal Ligation - Immunizations Immunizations up to date: Yes Hx Diphtheria, Pertussis, Tetanus Vaccination: Yes Review of Systems - Review of Systems Constitutional: See HPI EENT: See HPI Cardiovascular: No symptoms reported Respiratory: No symptoms reported Gastrointestinal: No symptoms reported Genitourinary: No symptoms reported Female Genitourinary: No symptoms reported Musculoskeletal: No symptoms reported Skin: No symptoms reported Hematologic/Lymphatic: No symptoms reported Neurological/Psychological: No symptoms reported Physical Exam - Notes Notes: PHYSICAL EXAMINATION: GENERAL: Well-appearing and in no acute distress. HEAD: Atraumatic, normocephalic. EYES: Pupils equal round and reactive to light, extraocular movements intact, sclera anicteric, conjunctiva are normal. ENT: Poor dentition, tooth #30 fractured, but with bottom half of tooth left, no drainage, mild amount of edema surrounding, exquisitely tender to palpation NECK: Normal range of motion, supple without lymphadenopathy LUNGS: CTAB and equal. No wheezes rales or rhonchi. HEART: Regular rate and rhythm without murmurs EXTREMITIES: Normal range of motion, no pitting edema. No cyanosis. NEUROLOGICAL: Cranial nerves grossly intact. Normal sensory/motor exams. PSYCH: Normal mood, normal affect. SKIN: Warm, Dry, normal turgor, no rashes or lesions noted Course - Re-evaluation Re-evalutation: 11/11/17 22:18 Patient received a Rocephin shot here and I will send her home with some pain medication to follow-up with her dentist. Discharge - Discharge Clinical Impression: Toothache Condition: Stable Disposition: HOME, SELF-CARE Additional Instructions: Return immediately for any new or worsening symptoms. Follow up with dentist, call tomorrow to make followup appointment.
[2017-11-11 22:45] VITALS: BP 120/87
== END 2017-11-11 23:07 | disposition home or self-care (01) ==
LOC: ER 21:42
DX: K08.89 Other specified disorders of teeth and supporting structures (principal); Z98.890 Other specified postprocedural states; Z88.0 Allergy status to penicillin; Z88.2 Allergy status to sulfonamides; Z88.5 Allergy status to narcotic agent; Z88.8 Allergy status to other drugs, medicaments and biological substances
CPT/HCPCS: 99282; 96372; J3490; J0696; A9270

== ENCOUNTER 2017-11-19 19:13 | Emergency (ER) | payer MEDICARE, MEDICAID ==
[2017-11-19] MEDS ORDERED: ACETAMINOPHEN 325 MG TABLET PO ONE (20:45)
--- NOTE | 2017-11-19 21:50 | RADIOLOGY REPORT (SQ) ---
EXAM DESCRIPTION: FACIAL BONES COMPLETED DATE/TIME: 11/19/2017 9:23 pm REASON FOR STUDY: pain COMPARISON: None. NUMBER OF VIEWS: Three view. TECHNIQUE: Images of the facial bones acquired. LIMITATIONS: None. FINDINGS: ORBITS: No fracture. No foreign body. SINUSES: No mucosal thickening. No air fluid levels. FACIAL BONES: No fracture. OTHER: No other significant finding. IMPRESSION: NO FOREIGN BODY OR FRACTURE OF THE FACIAL BONES. TECHNICAL DOCUMENTATION: JOB ID: [id number] [place]-72 2010 [employer]- All Rights Reserved
[2017-11-19] MEDS ORDERED: HYDROXYZINE PAMOATE 25 MG CAPSULE (4 CAP/ER DISP) PO PRN (21:59)
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
[2017-11-19 22:19] VITALS: BP 128/84
== END 2017-11-19 22:19 | disposition home or self-care (01) ==
LOC: ER 19:13
DX: F41.9 Anxiety disorder, unspecified (principal); J02.9 Acute pharyngitis, unspecified; F17.200 Nicotine dependence, unspecified, uncomplicated; Y09 Assault by unspecified means
CPT/HCPCS: 99283; 87070; 87880; 87077; 70150; A9270; J3490

== ENCOUNTER 2017-12-09 16:00 | Emergency (ER) | payer MEDICARE, MEDICAID ==
[2017-12-09 16:25] VITALS: BP 126/78
[2017-12-09] MEDS ORDERED: DEXAMETHASONE SOD PHOS INJ 10 MG/1 ML VIAL IM ONE (17:01)
--- NOTE | 2017-12-09 17:05 | ER Document Report ---
ED Neck/Back Problem - General Chief Complaint: Leg Pain Stated Complaint: LOWER BACK AND LEG PAIN Time Seen by Provider: 12/09/17 16:43 Mode of Arrival: Ambulatory Information source: Patient Notes: 37-year-old female presents to ED for chronic low back pain radiating down both legs. She has intermittent right and left lower leg pain for years. She has a history of bulging disc in her lower back and needs to have a new referral to the back specialist to get surgery to her back. She is on Robaxin twice daily. She did is going to pain management. I explained to her that we do not treat chronic pain in the emergency room and that she needs to go to her chronic pain management doctor. TRAVEL OUTSIDE OF THE [place] IN LAST 30 DAYS: No - HPI Onset: Other - Chronic Onset: Chronic Timing: Still present Quality of pain: Sharp, Throbbing Severity: Moderate Pain Level: 4 Recent injury: No Associated symptoms: Like prior neck/back pain, Radiation to leg, Lower back pain. denies: Incontinence, Motor loss, Numbness/tingling, Sensory loss, Sweaty , Unable to urinate, Upper back pain Exacerbated by: Movement of trunk Relieved by: Nothing Similar symptoms previously: Yes Recently seen / treated by doctor: Yes - Related Data Allergies/Adverse Reactions: amoxicillin trihydrate [From Augmentin] Allergy (Severe, Verified 12/09/17 16:05 ) rash and swelling asenapine maleate [From Saphris] Allergy (Severe, Verified 12/09/17 16:05) suicidal ideation Potassium Clavulanate * [From Augmentin] Allergy (Severe, Verified 12/09/17 16: 05) rash and swelling Sulfa (Sulfonamide Antibiotics) Allergy (Mild, Verified 12/09/17 16:05) codeine [Codeine] Allergy (Unknown, Verified 12/09/17 16:05) rash sulfur [From Sulfur-8] Allergy (Unknown, Verified 12/09/17 16:05) Hallucinations Past Medical History - General Information source: Patient - Social History Smoking Status: Never Smoker Cigarette use (# per day): No Chew tobacco use (# tins/day): No Smoking Education Provided: No Frequency of alcohol use: None Drug Abuse: None Family History: Reviewed & Not Pertinent Patient has suicidal ideation: No Patient has homicidal ideation: No - Past Medical History Cardiac Medical History: Reports: None Pulmonary Medical History: Reports: None EENT Medical History: Reports: None Neurological Medical History: Reports: Hx Migraine Renal/ Medical History: Reports: None Malignancy Medical History: Reports: None GI Medical History: Reports: None Musculoskeltal Medical History: Reports Hx Arthritis, Reports Hx Musculoskeletal Deformity, Reports Hx Musculoskeletal Trauma Skin Medical History: Reports None Psychiatric Medical History: Reports: Hx Anxiety, Hx Bipolar Disorder, Hx Depression - anxiety Traumatic Medical History: Reports: Hx Fractures - Arm Infectious Medical History: Reports: None Past Surgical History: Reports: Hx Section - x2, Hx Cholecystectomy, Hx Oral Surgery - [place] teeth, Hx Tubal Ligation - Immunizations Immunizations up to date: Yes Hx Diphtheria, Pertussis, Tetanus Vaccination: Yes Review of Systems - Review of Systems Constitutional: No symptoms reported EENT: No symptoms reported Cardiovascular: No symptoms reported Respiratory: No symptoms reported Gastrointestinal: No symptoms reported. denies: Diarrhea, Constipation, Fecal incontinence Genitourinary: No symptoms reported. denies: Incontinence, Retention Female Genitourinary: No symptoms reported Musculoskeletal: Back pain, Muscle pain Skin: No symptoms reported Hematologic/Lymphatic: No symptoms reported Neurological/Psychological: No symptoms reported -: Yes All other systems reviewed and negative Physical Exam - Vital signs Vitals: Temp Pulse Resp BP Pulse Ox 97.6 F 82 18 126/78 H 100 12/09/17 16:19 12/09/17 16:19 12/09/17 16:19 12/09/17 16:19 12/09/17 16:19 Interpretation: Normal - General General appearance: Appears well, Alert - HEENT Head: Normocephalic, Atraumatic Eyes: Normal Pupils: PERRL - Respiratory Respiratory status: No respiratory distress Chest status: Nontender Breath sounds: Normal Chest palpation: Normal - Cardiovascular Rhythm: Regular Heart sounds: Normal auscultation Murmur: No - Abdominal Inspection: Normal Distension: No distension Bowel sounds: Normal Tenderness: Nontender Organomegaly: No organomegaly - Back Back: Normal, Tender. No: Deformity/step-off, CVA tenderness, Vertebra tenderness, Scars, Scoliosis, Wounds Notes: No signs or symptoms of cauda equina, no saddle anesthesia, no loss control of bowel bladder, no loss control of lower extremities, no loss of sensation to the lower extremities, patient able to walk with the even steady gait. She was treated with Decadron IM. She requested Toradol but she had had ibuprofen just before coming to the emergency room. Patient states she also had a migraine headache. She was written a prescription for Phenergan and instructed to use this with Benadryl and ibuprofen for her migraines. Patient instructed to follow-up with her primary doctor and her pain doctor. - Extremities General upper extremity: Normal inspection, Nontender, Normal color, Normal ROM , Normal temperature General lower extremity: Normal inspection, Nontender, Normal color, Normal ROM , Normal temperature, Normal weight bearing. No: Rani's sign - Neurological Neuro grossly intact: Yes Cognition: Normal Orientation: AAOx4 [place] Coma Scale Eye Opening: Spontaneous [place] Coma Scale Verbal: Oriented [place] Coma Scale Motor: Obeys Commands [place] Coma Scale Total: 15 Speech: Normal Motor strength normal: LUE, RUE, LLE, RLE Sensory: Normal - Psychological Associated symptoms: Normal affect, Normal mood - Skin Skin Temperature: Warm Skin Moisture: Dry Skin Color: Normal Course - Vital Signs Vital signs: Temp Pulse Resp BP Pulse Ox 97.6 F 82 18 126/78 H 100 12/09/17 16:19 12/09/17 16:19 12/09/17 16:19 12/09/17 16:19 12/09/17 16:19 Discharge - Discharge Clinical Impression: Chronic low back pain with bilateral sciatica Qualifiers: Back pain laterality: bilateral Qualified Code(s): M54.42 - Lumbago with sciatica, left side Condition: Stable Disposition: HOME, SELF-CARE Additional Instructions: LOW BACK PAIN: Three out of every four people will have an episode of disabling back pain during their lifetime. Most commonly the pain is due to straining of the muscles and ligaments in the low back. Usual treatment includes: (1) Rest on a firm surface. Avoid lying on your stomach. (2) Ice pack the painful area. After a few days, gentle heat may be used intermittently to relax the area, or ice packs can be continued. (3) Medication may be needed -- muscle relaxers and antiinflammatory medicines are commonly used. (4) As the back improves, exercises are prescribed to strengthen the back and abdominal muscles. Your doctor will advise you on the proper care for your back at each stage in your recovery. You may be better in a few days -- or healing may take several weeks. If new symptoms of a "herniated disc" (radiation of pain, numbness, or tingling down the back of the leg or weakness in the leg) occur, you should be re-examined. Further testing may be necessary. STEROID MEDICATION: You have been given an injection of medicine of the cortisone/steroid class. This medication is used to control inflammation or allergy. It is often continued as a pill for a short period of time, until the acute process subsides. There are usually no side effects from short-term use of cortisone-like medications. Some persons feel an increased sense of well-being and are not sleepy at bedtime. Long-term use of cortisone medications is best avoided, unless required for a severe condition. If your condition does not remit, or relapses after the course of corticosteroid medication, you should consult your physician. Stretching Exercises for the Back The physician has recommended that you begin stretching exercises for your back. These are often used even while the back is painful. However, you should notify the physician if the activities seem to increase your pain. PELVIC TILT: Lie flat on your back with knees bent. Tighten your stomach and buttock muscles so it flattens your lower back against the floor. Hold 10 seconds. Repeat 10 times, twice daily. KNEE RAISE: Lying on the back with knees bent, raise one knee to your chest, then the other. Hold both knees against the chest 10 seconds, then lower one knee at a time. Repeat 10 times, twice daily. PARTIAL TRUNK RAISE: Lie face down, arms at your sides. Keeping your waist on the floor, use your arms raise your chest up. Support yourself on your elbows for 30 seconds. Repeat twice daily, increasing the time to two minutes as you recover. ICE PACKS: Apply ice packs frequently against the painful area. Many different schedules are recommended, such as "20 minutes on, 20 minutes off" or "one hour ice, two hours rest." If you need to work, you may need to go longer between ice treatments. You should plan to have the area ice packed AT LEAST one fourth of the time. The ice should be applied over the wrap, tape, or splint, or over a layer of cloth -- not directly against the skin. Some ice bags have a built-in cloth and can be put directly on the skin. WARM PACKS: After approximately two days, apply gentle heat (such as a heating pad or hot water bottle) for about 20 to 30 minutes about every two hours -- at least four times daily. Warmth and elevation will help you make a more rapid recovery , and will ease the pain considerably. Do not use HOT heat, and never apply heat for longer than 30 minutes. The continuous heat can invisibly damage skin and muscles -- even when no burn is seen on the surface. Damaged muscles can make you MORE sore. FOLLOW-UP CARE: If you have been referred to a physician for follow-up care, call the physician s office for an appointment as you were instructed or within the next two days. If you experience worsening or a significant change in your symptoms, notify the physician immediately or return to the Emergency Department at any time for re-evaluation. Prescriptions: Promethazine HCl [Phenergan 25 mg Tablet] 25 mg PO Q6HP PRN #10 tablet PRN Reason: Forms: Elevated Blood Pressure Referrals: LASHONDA JO MD [Primary Care Provider] - Follow up as needed
== END 2017-12-09 17:47 | disposition home or self-care (01) ==
LOC: ER 16:00
DX: G89.29 Other chronic pain (principal); M54.41 Lumbago with sciatica, right side; M54.42 Lumbago with sciatica, left side; Z79.899 Other long term (current) drug therapy; G43.909 Migraine, unspecified, not intractable, without status migrainosus; Z88.1 Allergy status to other antibiotic agents; Z88.8 Allergy status to other drugs, medicaments and biological substances; Z88.2 Allergy status to sulfonamides; Z88.5 Allergy status to narcotic agent
CPT/HCPCS: 99283; 96372; J1100

== ENCOUNTER 2018-02-13 10:27 | Emergency (ER) | payer MEDICARE, MEDICAID ==
[2018-02-13 10:46] VITALS: BP 112/67
[2018-02-13] MEDS ORDERED: KETOROLAC TROMETHAMINE 60 MG/2 ML SDV IM ONE (11:14)
--- NOTE | 2018-02-13 11:18 | ER Document Report ---
ED General - General Chief Complaint: Chest Pain Stated Complaint: CHEST PAIN Time Seen by Provider: 02/13/18 11:11 Mode of Arrival: Ambulatory Information source: Patient Notes: 38-year-old female presents complaining of left scapular pain. She describes the pain as aching, throbbing. She denies any aggravating or relieving factors. Patient denies any injury. she denies chest pain .She does state that she has recently been treated for bronchitis and is not sure if the pain is related to her constant coughing. Patient denies any fever, chills, shortness of breath. She denies any recent hospitalizations. Past medical history significant for depression. TRAVEL OUTSIDE OF THE [place] IN LAST 30 DAYS: No - HPI Onset: Last week Onset/Duration: Gradual Quality of pain: Throbbing Severity: Mild Associated symptoms: Productive cough Exacerbated by: Denies Relieved by: Denies Similar symptoms previously: No - Related Data Allergies/Adverse Reactions: amoxicillin trihydrate [From Augmentin] Allergy (Severe, Verified 02/13/18 10:40 ) rash and swelling asenapine maleate [From Saphris] Allergy (Severe, Verified 02/13/18 10:40) suicidal ideation Potassium Clavulanate * [From Augmentin] Allergy (Severe, Verified 02/13/18 10: 40) rash and swelling Sulfa (Sulfonamide Antibiotics) Allergy (Mild, Verified 02/13/18 10:40) codeine [Codeine] Allergy (Unknown, Verified 02/13/18 10:40) rash sulfur [From Sulfur-8] Allergy (Unknown, Verified 02/13/18 10:40) Hallucinations Past Medical History - General Information source: Patient - Social History Smoking Status: Former Smoker Chew tobacco use (# tins/day): No Frequency of alcohol use: None Drug Abuse: None Family History: Reviewed & Not Pertinent Patient has suicidal ideation: No Patient has homicidal ideation: No Pulmonary Medical History: Denies: Hx Asthma Neurological Medical History: Reports: Hx Migraine Renal/ Medical History: Denies: Hx Peritoneal Dialysis Musculoskeltal Medical History: Reports Hx Arthritis, Reports Hx Musculoskeletal Deformity, Reports Hx Musculoskeletal Trauma Psychiatric Medical History: Reports: Hx Anxiety, Hx Bipolar Disorder, Hx Depression - anxiety Traumatic Medical History: Reports: Hx Fractures - Arm Past Surgical History: Reports: Hx Section - x2, Hx Cholecystectomy, Hx Gynecologic Surgery - tubal, Hx Oral Surgery - [place] teeth, Hx Tubal Ligation - Immunizations Immunizations up to date: Yes Hx Diphtheria, Pertussis, Tetanus Vaccination: Yes Review of Systems - Review of Systems Notes: REVIEW OF SYSTEMS: CONSTITUTIONAL : Denies fever, chills, or sweats. Denies recent illness. Denies weight loss, recent hospitalizations. EENT: Denies visula changes, eye pain. Denies nasal or sinus congestion or discharge. Denies sore throat, oral lesions, difficulty swallowing. CARDIOVASCULAR: Denies chest pain. Denies palpitations or racing or irregular heart beat. Denies lower extremity edema. RESPIRATORY: Denies cough, cold, or chest congestion. Denies shortness of breath, difficulty breathing, or wheezing. GASTROINTESTINAL: Denies abdominal pain or distention. Denies nausea, vomiting , or diarrhea. Denies blood in vomitus, stools, or per rectum. Denies black, tarry stools. Denies constipation. GENITOURINARY: Denies difficulty urinating, painful urination, burning, frequency, blood in urine, or vaginal discharge. MUSCULOSKELETAL: Denies neck pain or stiffness. Denies joint pain or swelling. SKIN: Denies rash, lesions or sores. HEMATOLOGIC : Denies easy bruising or bleeding. LYMPHATIC: Denies swollen, enlarged glands. NEUROLOGICAL: Denies confusion or altered mental status. Denies passing out or loss of consciousness. Denies dizziness or lightheadedness. Denies headache. Denies weakness or paralysis or loss of use of either side. Denies problems with gait or speech. Denies sensory loss, numbness, or tingling. Denies seizures. PSYCHIATRIC: Denies anxiety or stress. Denies depression, suicidal ideation, or homicidal ideation. Physical Exam - Vital signs Vitals: Temp Pulse Resp BP Pulse Ox 98.5 F 90 16 112/67 100 02/13/18 10:33 02/13/18 10:33 02/13/18 10:33 02/13/18 10:33 02/13/18 10:33 Interpretation: No: Hypotensive, Febrile Notes: PHYSICAL EXAMINATION: GENERAL: Well-appearing, well-nourished and in no acute distress. HEAD: Atraumatic, normocephalic. EYES: Pupils equal round and reactive to light, extraocular movements intact, conjunctiva are normal. ENT: Nares patent, oropharynx clear without exudates. Moist mucous membranes. NECK: Normal range of motion, supple without lymphadenopathy LUNGS: Breath sounds clear to auscultation bilaterally and equal. No wheezes rales or rhonchi. HEART: Regular rate and rhythm without murmurs ABDOMEN: Soft, nontender, nondistended abdomen. No guarding, no rebound. No masses appreciated. Female : deferred Musculoskeletal: Normal range of motion, no pitting or edema. No cyanosis. Palpation around the left scapula no obvious crepitus, ecchymosis. NEUROLOGICAL: Cranial nerves grossly intact. Normal speech, normal gait. Normal sensory, motor exams PSYCH: Normal mood, normal affect. SKIN: Warm, Dry, normal turgor, no rashes or lesions noted. Course - Re-evaluation Re-evalutation: 02/13/18 13:31 Chest X-Ray 02/13/18 11:14 IMPRESSION: NO ACUTE RADIOGRAPHIC FINDING IN THE CHEST. 38-year-old female presents with complaint of left scapular pain. She reports recent illness of bronchitis, constant coughing for which she was treated with antibiotics and steroids 2 weeks prior to arrival. She denies injury. Patient was seen by myself upon arrival. Vital signs were reviewed. Patient is afebrile , normotensive and not hypoxic. Patient does not appear toxic or dehydrated. They are in no acute distress. Previous medical records and nursing notes reviewed. Significant findings include increased muscle tonicity around the left scapula. Patient is without chest pain. PERC negative. Patient received Toradol IM and will be given a prescription for Flexeril for home. Patient provided the opportunity to ask questions, and express concerns. Discharge instructions discussed. Patient is agreeable with discharge home. Return indications explained and discussed with the patient who displays understanding. Patient encouraged to return to the emergency department immediately with any concerns. 02/13/18 13:33 02/13/18 13:33 - Vital Signs Vital signs: Temp Pulse Resp BP Pulse Ox 98.5 F 90 16 112/67 100 02/13/18 10:33 02/13/18 10:33 02/13/18 10:33 02/13/18 10:33 02/13/18 10:33 - Diagnostic Test Radiology reviewed: Image reviewed Discharge - Discharge Clinical Impression: Pain in scapula Condition: Good Disposition: HOME, SELF-CARE Instructions: Muscle Strain ([facility]) Additional Instructions: Follow up with your physician tomorrow for further care or return to the ED IMMEDIATELY if symptoms worsen or new concerns occur. If you cannot afford to follow up with your primary care physician a list of low cost clinics have been provided at the end of your discharge papers as well. Prescriptions: Cyclobenzaprine HCl [Flexeril 10 mg Tablet] 10 mg PO TIDP PRN #15 tab PRN Reason: Referrals: LASHONDA JO MD [Primary Care Provider] - Follow up as needed
--- NOTE | 2018-02-13 12:26 | RADIOLOGY REPORT (SQ) ---
EXAM DESCRIPTION: CHEST 2 VIEWS COMPLETED DATE/TIME: 02/13/2018 11:42 am REASON FOR STUDY: pain COMPARISON: 06/15/2013 EXAM PARAMETERS: NUMBER OF VIEWS: two views TECHNIQUE: Digital Frontal and Lateral radiographic views of the chest acquired. RADIATION DOSE: NA LIMITATIONS: none FINDINGS: LUNGS AND PLEURA: No opacities, masses or pneumothorax. No pleural effusion. MEDIASTINUM AND HILAR STRUCTURES: No masses or contour abnormalities. HEART AND VASCULAR STRUCTURES: Heart normal size. No evidence for failure. BONES: No acute findings. HARDWARE: None in the chest. OTHER: No other significant finding. IMPRESSION: NO ACUTE RADIOGRAPHIC FINDING IN THE CHEST. TECHNICAL DOCUMENTATION: JOB ID: [id number] [employer]- All Rights Reserved Reading location - IP/workstation name: [email or web address]
--- NOTE | 2018-02-13 22:47 | EKG REPORT ---
SEVERITY:- NORMAL ECG - SINUS RHYTHM : Confirmed by: Lilliana Dawson 13-Feb-2018 19:47:00
== END 2018-02-13 13:26 | disposition home or self-care (01) ==
LOC: ER 10:27
DX: M25.512 Pain in left shoulder (principal); R07.9 Chest pain, unspecified; R05 Cough; Z87.891 Personal history of nicotine dependence
CPT/HCPCS: 93005; 99285; 96372; 71046; 93010; J1885

== ENCOUNTER 2018-04-04 05:11 | Emergency (ER) | payer MEDICARE, MEDICAID ==
[2018-04-04] MEDS ORDERED: KETOROLAC TROMETHAMINE 60 MG/2 ML SDV IM ONE (06:45)
--- NOTE | 2018-04-04 06:45 | ER Document Report ---
ED General - General Chief Complaint: Back Pain Stated Complaint: BACK PAIN Time Seen by Provider: 04/04/18 06:39 Mode of Arrival: Ambulatory Information source: Patient Notes: 38-year-old female with a history of lower back pain presents emergency department with complaints of pain to the left buttock with radiation posteriorly down her left leg. Patient states that this pain is chronic. She has followed up with her primary care physician for this pain. She has been referred to pain management. Patient is not on any pain medication outpatient. She denies any numbness, tingling, weakness, bowel or bladder incontinence. She denies any abdominal pain, dysuria, hematuria, vaginal bleeding, vaginal discharge, nausea, vomiting. TRAVEL OUTSIDE OF THE [place] IN LAST 30 DAYS: No - HPI Onset: Last week Onset/Duration: Gradual Quality of pain: Sharp, Stabbing Severity: Moderate Associated symptoms: None Exacerbated by: Denies Relieved by: Denies Similar symptoms previously: Yes Recently seen / treated by doctor: Yes - Related Data Allergies/Adverse Reactions: amoxicillin trihydrate [From Augmentin] Allergy (Severe, Verified 02/13/18 10:40 ) rash and swelling asenapine maleate [From Saphris] Allergy (Severe, Verified 02/13/18 10:40) suicidal ideation Potassium Clavulanate * [From Augmentin] Allergy (Severe, Verified 02/13/18 10: 40) rash and swelling Sulfa (Sulfonamide Antibiotics) Allergy (Mild, Verified 02/13/18 10:40) codeine [Codeine] Allergy (Unknown, Verified 02/13/18 10:40) rash sulfur [From Sulfur-8] Allergy (Unknown, Verified 02/13/18 10:40) Hallucinations Past Medical History - Social History Smoking Status: Never Smoker Chew tobacco use (# tins/day): No Frequency of alcohol use: None Drug Abuse: None Family History: Reviewed & Not Pertinent Patient has suicidal ideation: No Patient has homicidal ideation: No Pulmonary Medical History: Denies: Hx Asthma Neurological Medical History: Reports: Hx Migraine Renal/ Medical History: Denies: Hx Peritoneal Dialysis Musculoskeltal Medical History: Reports Hx Arthritis, Reports Hx Musculoskeletal Deformity, Reports Hx Musculoskeletal Trauma Psychiatric Medical History: Reports: Hx Anxiety, Hx Bipolar Disorder, Hx Depression - anxiety Traumatic Medical History: Reports: Hx Fractures - Arm Past Surgical History: Reports: Hx Section - x2, Hx Cholecystectomy, Hx Gynecologic Surgery - tubal, Hx Oral Surgery - [place] teeth, Hx Tubal Ligation - Immunizations Immunizations up to date: Yes Hx Diphtheria, Pertussis, Tetanus Vaccination: Yes Review of Systems - Review of Systems Constitutional: No symptoms reported EENT: No symptoms reported Cardiovascular: No symptoms reported Respiratory: No symptoms reported Gastrointestinal: No symptoms reported Genitourinary: No symptoms reported Female Genitourinary: No symptoms reported Musculoskeletal: Back pain Skin: No symptoms reported Hematologic/Lymphatic: No symptoms reported Neurological/Psychological: No symptoms reported -: Yes All other systems reviewed and negative Physical Exam - Vital signs Vitals: Temp Pulse Resp BP Pulse Ox 98.9 F 95 20 131/84 H 97 04/04/18 05:17 04/04/18 05:17 04/04/18 05:17 04/04/18 05:17 04/04/18 05:17 Interpretation: Normal - Notes Notes: PHYSICAL EXAMINATION: GENERAL: Well-appearing, well-nourished and in no acute distress. HEAD: Atraumatic, normocephalic. EYES: Pupils equal round and reactive to light, extraocular movements intact, conjunctiva are normal. ENT: Nares patent, oropharynx clear without exudates. Moist mucous membranes. NECK: Normal range of motion, supple without lymphadenopathy LUNGS: Breath sounds clear to auscultation bilaterally and equal. No wheezes rales or rhonchi. HEART: Regular rate and rhythm without murmurs ABDOMEN: Soft, nontender, nondistended abdomen. No guarding, no rebound. No masses appreciated. Female : deferred Musculoskeletal: Normal range of motion, no pitting or edema. No cyanosis. Patient is able to ambulate, walk on toes, walk on heels, squat. No vertebral tenderness to palpation. NEUROLOGICAL: Cranial nerves grossly intact. Normal speech, normal gait. Normal sensory, motor exams PSYCH: Normal mood, normal affect. SKIN: Warm, Dry, normal turgor, no rashes or lesions noted. Course - Re-evaluation Re-evalutation: 04/04/18 06:44 Patient has follow-up with pain management already scheduled. I will give the patient Toradol the emergency department. Patient instructed to contact her primary care physician for further pain control. Patient told to take over-the- counter medication as needed for symptom relief, to follow-up with her primary care physician as needed, and to return to emergency department for worsening symptoms. - Vital Signs Vital signs: Temp Pulse Resp BP Pulse Ox 98.9 F 95 20 131/84 H 97 04/04/18 05:17 04/04/18 05:17 04/04/18 05:17 04/04/18 05:17 04/04/18 05:17 Discharge - Discharge Condition: Good Disposition: HOME, SELF-CARE Instructions: Low Back Pain ([facility]) Referrals: LASHONDA JO MD [Primary Care Provider] - Follow up as needed
[2018-04-04 06:56] VITALS: BP 124/84
== END 2018-04-04 06:56 | disposition home or self-care (01) ==
LOC: ER 05:11
DX: G89.29 Other chronic pain (principal); M54.42 Lumbago with sciatica, left side; Z88.0 Allergy status to penicillin; Z88.2 Allergy status to sulfonamides; Z88.5 Allergy status to narcotic agent; Z88.8 Allergy status to other drugs, medicaments and biological substances
CPT/HCPCS: 99283; J1885

== ENCOUNTER 2018-05-20 07:14 | Emergency (ER) | payer MEDICARE, MEDICAID ==
[2018-05-20 07:23] VITALS: BP 114/74
[2018-05-20 08:11] LABS: APPEARANCE,URINE CLEAR; BILIRUBIN,URINE NEGATIVE (NEGATIVE); COLOR,URINE AMBER; GLUCOSE, URINE NEGATIVE (NEGATIVE); KETONES,URINE NEGATIVE (NEGATIVE); LEUKOCYTE ESTERASE,URINE NEGATIVE (NEGATIVE); NITRITE,URINE POSITIVE (NEGATIVE); PROTEIN,URINE NEGATIVE (NEGATIVE); URINE SPECIFIC GRAVITY 1.004
--- NOTE | 2018-05-20 09:21 | ER Document Report ---
ED General - General Chief Complaint: Urinary Problem Stated Complaint: URINARY ISSUE Time Seen by Provider: 05/20/18 09:03 Notes: 38-year-old female to emergency department complaining of lower dysuria. Mild burning with urination. No fever or chills. Mild pressure in the lower pelvic region. No significant vaginal complaints. No large amount of vaginal discharge. No fever. TRAVEL OUTSIDE OF THE [place] IN LAST 30 DAYS: No - HPI Onset: Yesterday Onset/Duration: Gradual - Related Data Allergies/Adverse Reactions: amoxicillin trihydrate [From Augmentin] Allergy (Severe, Verified 05/20/18 07:15 ) rash and swelling asenapine maleate [From Saphris] Allergy (Severe, Verified 05/20/18 07:15) suicidal ideation Potassium Clavulanate * [From Augmentin] Allergy (Severe, Verified 05/20/18 07: 15) rash and swelling Sulfa (Sulfonamide Antibiotics) Allergy (Mild, Verified 05/20/18 07:15) codeine [Codeine] Allergy (Unknown, Verified 05/20/18 07:15) rash sulfur [From Sulfur-8] Allergy (Unknown, Verified 05/20/18 07:15) Hallucinations Past Medical History - Social History Smoking Status: Smoker,Current Status Unk Frequency of alcohol use: None Drug Abuse: None Lives with: Spouse/Significant other Family History: Reviewed & Not Pertinent Pulmonary Medical History: Denies: Hx Asthma Neurological Medical History: Reports: Hx Migraine Renal/ Medical History: Denies: Hx Peritoneal Dialysis Musculoskeletal Medical History: Reports Hx Arthritis, Reports Hx Musculoskeletal Deformity, Reports Hx Musculoskeletal Trauma Psychiatric Medical History: Reports: Hx Anxiety, Hx Bipolar Disorder, Hx Depression - anxiety Traumatic Medical History: Reports: Hx Fractures - Arm Past Surgical History: Reports: Hx Section - x2, Hx Cholecystectomy, Hx Gynecologic Surgery - tubal, Hx Oral Surgery - [place] teeth, Hx Tubal Ligation - Immunizations Immunizations up to date: Yes Hx Diphtheria, Pertussis, Tetanus Vaccination: Yes Review of Systems - Review of Systems Notes: Constitutional: denies: Chills, Diaphoresis, Fever, Malaise, Weakness EENT: denies: Eye discharge, Blurred vision, Tearing, Double vision, Nose congestion, Nose discharge, Throat swelling, Mouth pain Cardiovascular: denies: Palpitations, Heart racing, Orthopnea, Dyspnea, Chest pain Respiratory: denies: Cough, Hurts to breathe, Wheezing, Shortness of breath Gastrointestinal: denies: Abdominal pain, Diarrhea, Nausea, Vomiting, Black stools, bright red blood in stool Genitourinary: Flank pain, dysuria, frequency, hesitancy Musculoskeletal: denies: Joint pain, Joint swelling, Muscle pain, Muscle stiffness, back pain Hematologic/Lymphatic: denies: Anemia, Easy bleeding, Easy bruising, Blood clots Neurological/Psychological: denies: Confusion, Dementia, Depression, Loss of consciousness Skin: No lesions, no masses, no skin breakdown, no abscesses Physical Exam - Vital signs Vitals: Temp Pulse Resp BP Pulse Ox 98.6 F 65 16 114/74 98 05/20/18 07:18 05/20/18 07:18 05/20/18 07:18 05/20/18 07:18 05/20/18 07:18 Interpretation: Normal - General General appearance: Appears well, Alert - HEENT Head: Normocephalic, Atraumatic Eyes: Normal Pupils: PERRL - Respiratory Respiratory status: No respiratory distress Chest status: Nontender Breath sounds: Normal Chest palpation: Normal - Cardiovascular Rhythm: Regular Heart sounds: Normal auscultation Murmur: No - Abdominal Inspection: Normal Distension: No distension Bowel sounds: Normal Tenderness: Nontender Organomegaly: No organomegaly - Back Back: Normal, Nontender - Extremities General upper extremity: Normal inspection, Nontender, Normal color, Normal ROM , Normal temperature General lower extremity: Normal inspection, Nontender, Normal color, Normal ROM , Normal temperature, Normal weight bearing. No: Rani's sign - Neurological Neuro grossly intact: Yes Cognition: Normal Orientation: AAOx4 [place] Coma Scale Eye Opening: Spontaneous [place] Coma Scale Verbal: Oriented [place] Coma Scale Motor: Obeys Commands [place] Coma Scale Total: 15 Speech: Normal Motor strength normal: LUE, RUE, LLE, RLE Sensory: Normal - Psychological Associated symptoms: Normal affect, Normal mood - Skin Skin Temperature: Warm Skin Moisture: Dry Skin Color: Normal Course - Re-evaluation Re-evalutation: 05/20/18 10:58 Laboratory 05/20/18 05/20/18 05/20/18 07:30 07:30 08:51 Urine Color RADHA Urine Appearance CLEAR Urine pH 7.0 Ur Specific [place] 1.004 Urine Protein NEGATIVE Urine Glucose (UA) NEGATIVE Urine Ketones NEGATIVE Urine Blood NEGATIVE Urine Nitrite POSITIVE H Urine Bilirubin NEGATIVE Urine Urobilinogen 4.0 H Ur Leukocyte Esterase NEGATIVE Urine WBC (Auto) 1 Urine RBC (Auto) 0 Urine Bacteria (Auto) 1+ Squamous Epi Cells Auto 9 Urine Mucus (Auto) RARE Urine Ascorbic Acid NEGATIVE Urine HCG, Qual NEGATIVE Chlamydia DNA (PCR) NOT DETECTED N.gonorrhoeae DNA (PCR) NOT DETECTED - Vital Signs Vital signs: Temp Pulse Resp BP Pulse Ox 98.6 F 65 16 114/74 98 05/20/18 07:18 05/20/18 07:18 05/20/18 09:45 05/20/18 07:18 05/20/18 07:18 - Laboratory Laboratory results interpreted by me: 05/20/18 07:30 Urine Nitrite POSITIVE H Urine Urobilinogen 4.0 H Discharge - Discharge Clinical Impression: Urinary tract infection Qualifiers: Urinary tract infection type: acute cystitis Hematuria presence: without hematuria Qualified Code(s): N30.00 - Acute cystitis without hematuria Condition: Good Disposition: HOME, SELF-CARE Instructions: Urinary Tract Infection ([facility]), Nitrofurantoin ([facility]), Urinary Anesthetic Agent ([facility]) Prescriptions: Nitrofurantoin/Nitrofuran Mac [Macrobid 100 mg Capsule] 1 tab PO BID #20 capsule Phenazopyridine HCl [Pyridium 100 Mg Tablet] 100 mg PO TID 2 Days #6 tablet Forms: Return to Work Referrals: LASHONDA JO MD [Primary Care Provider] - Follow up as needed
[2018-05-20] MEDS ORDERED: PHENAZOPYRIDINE HCL 100 MG TABLET PO ONE (10:11)
[2018-05-20] MEDS ORDERED: NITROFURANTOIN MONOHYD/M-CRYST 100 MG CAPSULE PO ONE (10:11)
[2018-05-20 10:38] LABS: CHLAM PCR NOT DETECTED (NOT DETECT); GON PCR NOT DETECTED (NOT DETECT)
== END 2018-05-20 11:16 | disposition home or self-care (01) ==
LOC: ER 07:14
DX: N30.00 Acute cystitis without hematuria (principal); Z88.0 Allergy status to penicillin; Z88.2 Allergy status to sulfonamides; Z88.5 Allergy status to narcotic agent; Z88.8 Allergy status to other drugs, medicaments and biological substances
CPT/HCPCS: 99283; 87086; 81025; 81001; 87491; 87591; A9270 ×2; J3490; J8499

== ENCOUNTER 2019-01-13 15:42 | Emergency (ER) | payer MEDICARE, MEDICAID ==
[2019-01-13] MEDS ORDERED: ASPIRIN 81 MG TABLET, CHEWABLE PO ONE (17:43)
--- NOTE | 2019-01-13 17:47 | ER Document Report ---
ED Medical Screen (RME) - General Chief Complaint: Chest Pain > 30 Stated Complaint: CHEST PAIN Time Seen by Provider: 01/13/19 17:37 Primary Care Provider: LASHONDA JO MD [Primary Care Provider] - Follow up as needed Mode of Arrival: Ambulatory Information source: Patient TRAVEL OUTSIDE OF THE [place] IN LAST 30 DAYS: No - HPI Patient complains to provider of: MARIKA Notes: 01/13/19 17:43 Patient here with complaints of chest pain. The patient states she was seen at home when she developed sudden onset of chest pain and shortness of breath. She took some of her Vistaril and her symptoms seem to have improved. She does have a history of anxiety and depression. She currently denies any chest pain or shortness of breath at this time. She denies a history of hypertension, high cholesterol, diabetes, CAD, family history of CAD, drug use, smoking, alcohol use. She denies any recent long trips or surgeries, no leg pain or leg swelling, no cancer, hormone use, no history of DVT or PE. Exam Patient is in no distress, nontoxic-appearing, lungs clear and equal. Legs with no swelling or tenderness. Heart sounds normal. Plan EKG, labs, chest x-ray. This point, the patient is low risk for CAD, symptoms are atypical of ACS, heart score will likely be low as long as troponins are negative. Would consider discharge home with 2 NEG troponins. An initial examination was made on the patient as part of the triage process, and it was determined a more comprehensive evaluation was necessary. Initial labs were ordered and patient was transferred to another provider in the ED who assumed care and finished evaluation and plan. - Related Data Allergies/Adverse Reactions: amoxicillin trihydrate [From Augmentin] Allergy (Severe, Verified 01/13/19 15:43) rash and swelling asenapine maleate [From Saphris] Allergy (Severe, Verified 01/13/19 15:43) suicidal ideation Potassium Clavulanate * [From Augmentin] Allergy (Severe, Verified 01/13/19 15:43) rash and swelling Sulfa (Sulfonamide Antibiotics) Allergy (Mild, Verified 01/13/19 15:43) codeine [Codeine] Allergy (Unknown, Verified 01/13/19 15:43) rash sulfur [From Sulfur-8] Allergy (Unknown, Verified 01/13/19 15:43) Hallucinations Past Medical History - Social History Frequency of alcohol use: None Drug Abuse: None Pulmonary Medical History: Denies: Hx Asthma Neurological Medical History: Reports: Hx Migraine Renal/ Medical History: Denies: Hx Peritoneal Dialysis Musculoskeltal Medical History: Reports Hx Arthritis, Reports Hx Musculoskeletal Deformity, Reports Hx Musculoskeletal Trauma Psychiatric Medical History: Reports: Hx Anxiety, Hx Bipolar Disorder, Hx Depression - anxiety Traumatic Medical History: Reports: Hx Fractures - Arm Past Surgical History: Reports: Hx Section - x2, Hx Cholecystectomy, Hx Gynecologic Surgery - tubal, Hx Oral Surgery - [place] teeth, Hx Tubal Ligation - Immunizations Immunizations up to date: Yes Hx Diphtheria, Pertussis, Tetanus Vaccination: Yes Physical Exam - Vital signs Vitals: Temp Pulse Resp BP Pulse Ox 97.7 F 86 16 125/81 99 01/13/19 16:03 01/13/19 16:03 01/13/19 16:03 01/13/19 16:03 01/13/19 16:03 Course - Vital Signs Vital signs: Temp Pulse Resp BP Pulse Ox 97.7 F 86 16 125/81 99 01/13/19 16:03 01/13/19 16:03 01/13/19 16:03 01/13/19 16:03 01/13/19 16:03 Doctor's Discharge - Discharge Referrals: LASHONDA JO MD [Primary Care Provider] - Follow up as needed
--- NOTE | 2019-01-13 18:06 | RADIOLOGY REPORT (SQ) ---
EXAM DESCRIPTION: CHEST SINGLE VIEW COMPLETED DATE/TIME: 01/13/2019 5:58 pm REASON FOR STUDY: CP COMPARISON: 02/13/2018 EXAM PARAMETERS: NUMBER OF VIEWS: One view. TECHNIQUE: Single frontal radiographic view of the chest acquired. RADIATION DOSE: NA LIMITATIONS: None. FINDINGS: LUNGS AND PLEURA: No opacities, masses or pneumothorax. No pleural effusion. MEDIASTINUM AND HILAR STRUCTURES: No masses. Contour normal. HEART AND VASCULAR STRUCTURES: Heart normal in size. Normal vasculature. BONES: No acute findings. HARDWARE: None in the chest. OTHER: No other significant finding. IMPRESSION: NO ACUTE RADIOGRAPHIC FINDING IN THE CHEST. TECHNICAL DOCUMENTATION: JOB ID: [id number] [employer]- All Rights Reserved Reading location - IP/workstation name: [email or web address]
[2019-01-13 18:58] LABS: ABSOLUTE BASOPHILS # (AUTO) 0.1 10^3/uL (0.0-0.2); ABSOLUTE EOSINOPHILS # (AUTO) 0.2 10^3/uL (0.0-0.6); ABSOLUTE LYMPHOCYTES (AUTO) 3.3 10^3/uL (0.5-4.7); ABSOLUTE MONOCYTES (AUTO) 0.8 10^3/uL (0.1-1.4); ABSOLUTE NEUT (AUTO) 7.6 10^3/uL (1.7-8.2); BASOPHILS % (AUTO) 0.5 % (0-2); EOSINOPHILS % (AUTO) 1.5 % (0-6); HEMOGLOBIN 14.5 g/dL (12.0-15.5); LYMPHOCYTES % (AUTO) 27.5 % (13-45); MEAN CORPUSCULAR HEMOGLOBIN 27.8 pg (27.0-33.4); MEAN CORPUSCULAR HGB CONC 33.7 g/dL (32.0-36.0); MEAN CORPUSCULAR VOLUME 83 fl (80-97); MONOCYTES % (AUTO) 6.5 % (3-13); PLATELET COUNT 307 10^3/uL (150-450); RED BLOOD COUNT 5.21 10^6/uL (3.72-5.28); RED CELL DISTRIBUTION WIDTH 14.6 % (11.5-14.0); TOTAL CELLS COUNTED % (AUTO) 100 %; WHITE BLOOD COUNT 11.9 10^3/uL (4.0-10.5)
[2019-01-13 19:18] LABS: ALANINE AMINOTRANSFERASE 24 U/L (9-52); ALBUMIN 4.4 g/dL (3.5-5.0); ALKALINE PHOSPHATASE 67 U/L (38-126); ANION GAP 8 (5-19); ASPARTATE AMINO TRANSFERASE 18 U/L (14-36); BILIRUBIN,DIRECT 0.3 mg/dL (0.0-0.4); BILIRUBIN,TOTAL 0.6 mg/dL (0.2-1.3); BLOOD UREA NITROGEN 6 mg/dL (7-20); CALCIUM 10.2 mg/dL (8.4-10.2); CARBON DIOXIDE 25 mmol/L (22-30); CHLORIDE 106 mmol/L (98-107); CREATINE KINASE 77 U/L (30-135); GLUCOSE 89 mg/dL (75-110); SODIUM 139.4 mmol/L (137-145); TOTAL PROTEIN 7.3 g/dL (6.3-8.2)
[2019-01-13 19:26] LABS: CREATINE KINASE MB 0.42 ng/mL (<4.55); TROPONIN I < 0.012 ng/mL
--- NOTE | 2019-01-13 20:02 | EKG REPORT ---
SEVERITY:- NORMAL ECG - SINUS RHYTHM : Confirmed by: Francine Amaya MD 13-Jan-2019 20:01:03
[2019-01-13] MEDS ORDERED: KETOROLAC TROMETHAMINE INJ/PF 30 MG/1 ML SDV IV ONE (21:18)
[2019-01-13] MEDS ORDERED: LIDOCAINE 5% (700 MG) TRANSDERMAL ADH..PATCH TP ONE (21:18)
--- NOTE | 2019-01-13 21:21 | ER Document Report ---
ED General - General Chief Complaint: Chest Pain > 30 Stated Complaint: CHEST PAIN Time Seen by Provider: 01/13/19 17:37 Primary Care Provider: LASHONDA JO MD [Primary Care Provider] - Follow up in 3-5 days Mode of Arrival: Ambulatory Notes: Patient is a 38-year-old female with a past medical history of bipolar disorder, anxiety, depression, presents with chest pain. Pain started roughly 8 hours prior to presentation, described as a moderate to severe, stabbing pain to her left chest. She denies any radiation of the pain. Symptoms came on abruptly and have now mostly resolved after she took hydroxyzine at home. Denies any history of similar symptoms in the past. Nothing seemed to worsen the symptoms in present. She denies any associated shortness of breath. No nausea, vomiting or diaphoresis. She denies any history of DVT or pulmonary embolus. No use of control or estrogen. Denies any pleuritic component to her pain. No hemoptysis. TRAVEL OUTSIDE OF THE [place] IN LAST 30 DAYS: No - Related Data Allergies/Adverse Reactions: amoxicillin trihydrate [From Augmentin] Allergy (Severe, Verified 01/13/19 15:43) rash and swelling asenapine maleate [From Saphris] Allergy (Severe, Verified 01/13/19 15:43) suicidal ideation Potassium Clavulanate * [From Augmentin] Allergy (Severe, Verified 01/13/19 15:43) rash and swelling Sulfa (Sulfonamide Antibiotics) Allergy (Mild, Verified 01/13/19 15:43) codeine [Codeine] Allergy (Unknown, Verified 01/13/19 15:43) rash sulfur [From Sulfur-8] Allergy (Unknown, Verified 01/13/19 15:43) Hallucinations Past Medical History - General Information source: Patient - Social History Smoking Status: Never Smoker Frequency of alcohol use: None Drug Abuse: None Family History: Reviewed & Not Pertinent Patient has suicidal ideation: No Patient has homicidal ideation: No Pulmonary Medical History: Denies: Hx Asthma Neurological Medical History: Reports: Hx Migraine Renal/ Medical History: Denies: Hx Peritoneal Dialysis Musculoskeletal Medical History: Reports Hx Arthritis, Reports Hx Musculoskeletal Deformity, Reports Hx Musculoskeletal Trauma Psychiatric Medical History: Reports: Hx Anxiety, Hx Bipolar Disorder, Hx Depression - anxiety Traumatic Medical History: Reports: Hx Fractures - Arm Past Surgical History: Reports: Hx Section - x2, Hx Cholecystectomy, Hx Gynecologic Surgery - tubal, Hx Oral Surgery - [place] teeth, Hx Tubal Ligation - Immunizations Immunizations up to date: Yes Hx Diphtheria, Pertussis, Tetanus Vaccination: Yes Review of Systems - Review of Systems Notes: Constitutional: Negative for fever. HENT: Negative for sore throat. Eyes: Negative for visual changes. Cardiovascular: Positive for chest pain. Respiratory: Negative for shortness of breath. Gastrointestinal: Negative for abdominal pain, vomiting or diarrhea. Genitourinary: Negative for dysuria. Musculoskeletal: Negative for back pain. Skin: Negative for rash. Neurological: Negative for headaches, weakness or numbness. 10 point ROS negative except as marked above and in HPI. Physical Exam - Vital signs Vitals: Temp Pulse Resp BP Pulse Ox 97.7 F 86 16 125/81 99 01/13/19 16:03 01/13/19 16:03 01/13/19 16:03 01/13/19 16:03 01/13/19 16:03 Interpretation: Normal Notes: PHYSICAL EXAMINATION: GENERAL: Well-appearing, well-nourished and in no acute distress. HEAD: Atraumatic, normocephalic. EYES: Pupils equal round and reactive to light, extraocular movements intact, sclera anicteric, conjunctiva are normal. ENT: nares patent, oropharynx clear without exudates. Moist mucous membranes. NECK: Normal range of motion, supple without lymphadenopathy LUNGS: Breath sounds clear to auscultation bilaterally and equal. No wheezes rales or rhonchi. HEART: Regular rate and rhythm without murmurs chest wall: Positive for reproducibility of chest pain on palpation of the left central chest ABDOMEN: Soft, nontender, normoactive bowel sounds. No guarding, no rebound. No masses appreciated. EXTREMITIES: Normal range of motion, no pitting or edema. No cyanosis. NEUROLOGICAL: No focal neurological deficits. Moves all extremities spontaneously and on command. PSYCH: Normal mood, normal affect. SKIN: Warm, Dry, normal turgor, no rashes or lesions noted. Course - Re-evaluation Re-evalutation: 01/13/19 21:19 Presentation of chest pain in an otherwise well appearing patient. Low clinical suspicion for ACS given clinical history, exam, EKG without ST elevations or depressions, and negative initial troponin. HEART score less than or equal to 3. PE also seems unlikely given clinical history, absence of tachycardia or dyspnea. Patient is PERC criteria negative. CXR without evidence of pneumothorax or pneumonia. No widened mediastinum. Aortic dissection also seems unlikely g iven history, symmetric pulses, CXR, and vitals. Pain is very reproducible on exam, appears to be musculoskeletal in origin. If repeat troponin is normal plan for discharge home. 01/14/19 00 00 repeat troponin remains normal. Patient remains pain-free. At this time will discharge with return precautions and follow-up recommendations. Verbal discharge instructions given a the bedside and opportunity for questions given. Medication warnings reviewed. Patient is in agreement with this plan and has verbalized understanding of return precautions and the need for primary care follow-up in the next 24-72 hours. - Vital Signs Vital signs: Temp Pulse Resp BP Pulse Ox 97.6 F 86 15 117/74 99 01/13/19 23:00 01/13/19 16:03 01/13/19 21:04 01/13/19 21:04 01/13/19 22:00 - Laboratory Result Diagrams: 01/13/19 18:44 01/13/19 18:44 Laboratory results interpreted by me: 01/13/19 01/13/19 18:44 18:44 WBC 11.9 H RDW 14.6 H BUN 6 L - Diagnostic Test Radiology reviewed: Image reviewed, Reports reviewed Radiology results interpreted by me: 01/13/19 21:20 Chest x-ray: No acute infiltrate or pneumothorax - EKG Interpretation by Me Additional EKG results interpreted by me: 01/13/19 21:20 Sinus rhythm, rate 84. No ST elevations or depressions. QTC is 483. Discharge - Discharge Clinical Impression: Chest pain Qualifiers: Chest pain type: unspecified Qualified Code(s): R07.9 - Chest pain, unspecified Condition: Good Disposition: HOME, SELF-CARE Additional Instructions: You were seen today for chest pain. The exact cause of your pain is unclear but it appears likely to be related to the muscles of your chest wall. However, based on your cardiac enzyme testing, chest x-ray, and EKG it does not appear that it is from an immediately life-threatening cause at this time. Although your testing here is normal is critical that you follow-up with your primary care physician for continued evaluation of this chest pain. Please return to emergency department immediately if you have worsening of your chest pain, shortness of breath, vomiting, become unable to exert yourself due to pain or difficulty breathing, you pass out, or have any pain that radiates into your arms, jaw, or back. Please also return if you have any additional symptoms that are concerning to you. You should take ibuprofen 600 mg every 6 hours as needed for your chest discomfort Referrals: LASHONDA JO MD [Primary Care Provider] - Follow up in 3-5 days
[2019-01-13 21:34] VITALS: BP 117/74
== END 2019-01-13 23:20 | disposition home or self-care (01) ==
LOC: ER 15:42
DX: R07.9 Chest pain, unspecified (principal); F41.9 Anxiety disorder, unspecified; F32.9 Major depressive disorder, single episode, unspecified; Z79.899 Other long term (current) drug therapy
CPT/HCPCS: 93005; 99284; 96374; 36415; 82553; 82550; 85025; 80053; 84484; 71045; 93010; A9270; J1885

== ENCOUNTER 2019-02-01 10:36 | Emergency (ER) | payer MEDICARE, MEDICAID ==
[2019-02-01] MEDS ORDERED: KETOROLAC TROMETHAMINE INJ/PF 30 MG/1 ML SDV IV ONE (11:02)
--- NOTE | 2019-02-01 11:04 | ER Document Report ---
ED Medical Screen (RME) - General Chief Complaint: Sore Throat Stated Complaint: SORE THROAT Time Seen by Provider: 02/01/19 10:57 Primary Care Provider: LASHONDA JO MD [Primary Care Provider] - Follow up as needed Mode of Arrival: Ambulatory Information source: Patient TRAVEL OUTSIDE OF THE [place] IN LAST 30 DAYS: No - HPI Patient complains to provider of: RIGHT SORE THROAT Notes: 02/01/19 11:03 Patient here with complaints of right-sided sore throat. The patient states that she has had pain for the last 3 days but only on the right side of her throat and at the base of her tongue. No fever. No nausea, vomiting, diarrhea. No difficulty breathing or swallowing. No neck swelling. Exam No distress, nontoxic-appearing. Lungs clear and equal throughout. Heart sounds normal. Posterior pharynx without erythema or exudate. Uvula midline. Voice normal. No trismus or drooling. Possible masslike structure deep in the right aspect of the posterior pharynx potentially at the very base of the tonsil. Plan CBC, CMP, , saline lock, rapid strep, CT soft tissue neck with IV contr ast. An initial examination was made on the patient as part of the triage process, and it was determined a more comprehensive evaluation was necessary. Initial labs were ordered and patient was transferred to another provider in the ED who assumed care and finished evaluation and plan. - Related Data Allergies/Adverse Reactions: amoxicillin trihydrate [From Augmentin] Allergy (Severe, Verified 02/01/19 10:37) rash and swelling asenapine maleate [From Saphris] Allergy (Severe, Verified 02/01/19 10:37) suicidal ideation Potassium Clavulanate * [From Augmentin] Allergy (Severe, Verified 02/01/19 10:37) rash and swelling Sulfa (Sulfonamide Antibiotics) Allergy (Mild, Verified 02/01/19 10:37) codeine [Codeine] Allergy (Unknown, Verified 02/01/19 10:37) rash sulfur [From Sulfur-8] Allergy (Unknown, Verified 02/01/19 10:37) Hallucinations Past Medical History - Social History Chew tobacco use (# tins/day): No Frequency of alcohol use: None Drug Abuse: None Pulmonary Medical History: Denies: Hx Asthma Neurological Medical History: Reports: Hx Migraine Renal/ Medical History: Denies: Hx Peritoneal Dialysis Musculoskeltal Medical History: Reports Hx Arthritis, Reports Hx Musculoskeletal Deformity, Reports Hx Musculoskeletal Trauma Psychiatric Medical History: Reports: Hx Anxiety, Hx Bipolar Disorder, Hx Depression - anxiety Traumatic Medical History: Reports: Hx Fractures - Arm Past Surgical History: Reports: Hx Section - x2, Hx Cholecystectomy, Hx Gynecologic Surgery - tubal, Hx Oral Surgery - [place] teeth, Hx Tubal Ligation - Immunizations Immunizations up to date: Yes Hx Diphtheria, Pertussis, Tetanus Vaccination: Yes Physical Exam - Vital signs Vitals: Temp Pulse Resp BP Pulse Ox 98.4 F 83 16 121/78 98 02/01/19 10:41 02/01/19 10:41 02/01/19 10:41 02/01/19 10:41 02/01/19 10:41 Course - Vital Signs Vital signs: Temp Pulse Resp BP Pulse Ox 98.4 F 83 16 121/78 98 02/01/19 10:41 02/01/19 10:41 02/01/19 10:41 02/01/19 10:41 02/01/19 10:41 Doctor's Discharge - Discharge Referrals: LASHONDA JO MD [Primary Care Provider] - Follow up as needed
[2019-02-01 11:56] LABS: ABSOLUTE EOSINOPHILS # (AUTO) 0.2 10^3/uL (0.0-0.6); ABSOLUTE LYMPHOCYTES (AUTO) 2.6 10^3/uL (0.5-4.7); ABSOLUTE MONOCYTES (AUTO) 0.5 10^3/uL (0.1-1.4); ABSOLUTE NEUT (AUTO) 5.9 10^3/uL (1.7-8.2); BASOPHILS % (AUTO) 0.5 % (0-2); EOSINOPHILS % (AUTO) 2.1 % (0-6); HEMOGLOBIN 13.4 g/dL (12.0-15.5); LYMPHOCYTES % (AUTO) 28.2 % (13-45); MEAN CORPUSCULAR HEMOGLOBIN 27.4 pg (27.0-33.4); MEAN CORPUSCULAR HGB CONC 32.8 g/dL (32.0-36.0); MEAN CORPUSCULAR VOLUME 84 fl (80-97); MONOCYTES % (AUTO) 5.8 % (3-13); PLATELET COUNT 285 10^3/uL (150-450); RED BLOOD COUNT 4.91 10^6/uL (3.72-5.28); RED CELL DISTRIBUTION WIDTH 14.5 % (11.5-14.0); SEGMENTED NEUTROPHILS % (AUTO) 63.4 % (42-78); TOTAL CELLS COUNTED % (AUTO) 100 %; WHITE BLOOD COUNT 9.3 10^3/uL (4.0-10.5)
--- NOTE | 2019-02-01 11:57 | ER Document Report ---
ED General - General Chief Complaint: Sore Throat Stated Complaint: SORE THROAT Time Seen by Provider: 02/01/19 10:57 Primary Care Provider: LASHONDA JO MD [Primary Care Provider] - Follow up as needed Mode of Arrival: Ambulatory Notes: 39-year-old female presents to the emergency department with chief complaint of a right-sided sore throat. She said the pain is been present for the last 3 days at the base of her tongue. She is complaining of dysphagia described as a sensation of food getting stuck and not being able to get it down. She has neck pain when turning her head to the right. She is also complaining of cold sweats. She denies any fevers, vision changes, nausea or vomiting, dizziness or lightheadedness. She denies any swelling of her tongue or recent illness. No o ther complaints. She is not a smoker TRAVEL OUTSIDE OF THE [place] IN LAST 30 DAYS: No - Related Data Allergies/Adverse Reactions: amoxicillin trihydrate [From Augmentin] Allergy (Severe, Verified 02/01/19 10:37) rash and swelling asenapine maleate [From Saphris] Allergy (Severe, Verified 02/01/19 10:37) suicidal ideation Potassium Clavulanate * [From Augmentin] Allergy (Severe, Verified 02/01/19 10:37) rash and swelling Sulfa (Sulfonamide Antibiotics) Allergy (Mild, Verified 02/01/19 10:37) codeine [Codeine] Allergy (Unknown, Verified 02/01/19 10:37) rash sulfur [From Sulfur-8] Allergy (Unknown, Verified 02/01/19 10:37) Hallucinations Past Medical History - General Information source: Patient - Social History Smoking Status: Never Smoker Chew tobacco use (# tins/day): No Frequency of alcohol use: None Drug Abuse: None Family History: Reviewed & Not Pertinent Patient has suicidal ideation: No Patient has homicidal ideation: No Pulmonary Medical History: Denies: Hx Asthma Neurological Medical History: Reports: Hx Migraine Renal/ Medical History: Denies: Hx Peritoneal Dialysis Musculoskeletal Medical History: Reports Hx Arthritis, Reports Hx Musculo skeletal Deformity, Reports Hx Musculoskeletal Trauma Psychiatric Medical History: Reports: Hx Anxiety, Hx Bipolar Disorder, Hx Depression - anxiety Traumatic Medical History: Reports: Hx Fractures - Arm Past Surgical History: Reports: Hx Section - x2, Hx Cholecystectomy, Hx Gynecologic Surgery - tubal, Hx Oral Surgery - [place] teeth, Hx Tubal Ligation - Immunizations Immunizations up to date: Yes Hx Diphtheria, Pertussis, Tetanus Vaccination: Yes Review of Systems - Review of Systems Constitutional: See HPI EENT: See HPI Cardiovascular: See HPI Respiratory: See HPI Gastrointestinal: No symptoms reported Genitourinary: No symptoms reported Female Genitourinary: No symptoms reported Musculoskeletal: No symptoms reported Skin: No symptoms reported Hematologic/Lymphatic: No symptoms reported Neurological/Psychological: No symptoms reported Physical Exam - Vital signs Vitals: Temp Pulse Resp BP Pulse Ox 98.4 F 83 16 121/78 98 02/01/19 10:41 02/01/19 10:41 02/01/19 10:41 02/01/19 10:41 02/01/19 10:41 - Notes Notes: PHYSICAL EXAMINATION: Reviewed vital signs and charting by RN GENERAL: Alert, interacts well. No acute distress. HEAD: Normocephalic, atraumatic. EYES: Pupils equal and round. Extraocular movements intact. ENT: Oral mucosa moist, tongue midline. Swelling seen at the base of the tongue on the right side, swelling also seen in the entire subglossal area, oropharynx with no swelling and no airway compromise. NECK: Full range of motion. Supple. Trachea midline. Unable to palpate a mass when assessing the thyroid. LUNGS: Clear to auscultation bilaterally, no wheezes, rales, or rhonchi. No respiratory distress. HEART: Regular rate and rhythm. No murmur ABDOMEN: soft, non-tender. Non-distended. Bowel sounds present. no McBurney's point tenderness, no Alfonso sign. EXTREMITIES: Moves all 4 extremities spontaneously. No edema, No cyanosis. Normal distal neurovascular exam BACK: No CVAT NEUROLOGIC: Oriented and appropriate. Normal speech. PSYCH: Normal affect, normal mood. SKIN: Warm, dry, normal turgor. No rashes or lesions noted. Course - Re-evaluation Re-evalutation: 02/01/19 13:13 Overall well-appearing. Patient with a soft tissue neck CT which showed an enlarged thyroid and a 1 cm hypo-dense lesion. Explains patient's symptoms. I have added a TSH. 02/01/19 14:00 TSH is normal. I instructed patient to follow-up with Dr. Jo. I will put her on a course of burst dose steroids until she can follow-up. Airway is patent and she is in no respiratory distress at this time. She is stable for discharge. - Vital Signs Vital signs: Temp Pulse Resp BP Pulse Ox 97.7 F 73 16 102/72 100 02/01/19 14:12 02/01/19 14:12 02/01/19 10:41 02/01/19 14:12 02/01/19 14:12 - Laboratory Result Diagrams: 02/01/19 11:25 02/01/19 11:25 Laboratory results interpreted by me: 02/01/19 11:25 RDW 14.5 H Discharge - Discharge Clinical Impression: Throat pain, Enlarged thyroid Dysphagia Qualifiers: Dysphagia type: unspecified Qualified Code(s): R13.10 - Dysphagia, unspecified Condition: Good Disposition: HOME, SELF-CARE Instructions: Dysphagia ([facility]), Sore Throat ([facility]) Additional Instructions: You were seen in the emergency department this afternoon for neck pain and a sore throat. Your CT scan did show that you have an enlarged thyroid with some nodules that measure about 1 cm in size. Everything else looked normal. I am giving you a short course of steroids and I want you to follow-up with Dr. Jo promptly early next week. Develop acute shortness of breath, your airway starts to close off, you are unable to swallow or control your secretions and/or drooling, or have any other concerns please immediately return to the emergency department. Prescriptions: RX: Prednisone [Deltasone 20 mg Tablet] 3 tab PO DAILY 5 Days tablet Referrals: LASHONDA JO MD [Primary Care Provider] - Follow up as needed
[2019-02-01 12:09] LABS: ALANINE AMINOTRANSFERASE 29 U/L (9-52); ALKALINE PHOSPHATASE 64 U/L (38-126); ANION GAP 10 (5-19); ASPARTATE AMINO TRANSFERASE 19 U/L (14-36); BILIRUBIN,DIRECT 0.3 mg/dL (0.0-0.4); BILIRUBIN,TOTAL 0.5 mg/dL (0.2-1.3); BLOOD UREA NITROGEN 9 mg/dL (7-20); CARBON DIOXIDE 28 mmol/L (22-30); CHLORIDE 100 mmol/L (98-107); GLUCOSE 90 mg/dL (75-110); POTASSIUM 4.4 mmol/L (3.6-5.0); SODIUM 138.1 mmol/L (137-145)
--- NOTE | 2019-02-01 12:33 | RADIOLOGY REPORT (SQ) ---
EXAM DESCRIPTION: CT SOFT TISSUE NECK WITH COMPLETED DATE/TIME: 02/01/2019 12:12 pm REASON FOR STUDY: RIGHT NECK/THROAT PAIN, POSSIBLE MASS COMPARISON: None. TECHNIQUE: Post IV contrasted scanning from skull base through lung apices with review of bone, soft tissue and lung windows. Reconstructed coronal and sagittal MPR images reviewed. All images stored on PACS. All CT scanners at this facility use dose modulation, iterative reconstruction, and/or weight based d osing when appropriate to reduce radiation dose to as low as reasonably achievable (ALARA). [facility]: Dose Right [facility]: CareDose [facility]: Dose Right [facility]: Teradose 4D [facility]: Spiffy Society CONTRAST TYPE AND DOSE: contrast/concentration: Isovue 350.00 mg/ml; Total Contrast Delivered: 75.0 ml; Total Saline Delivered: 55.0 ml RENAL FUNCTION: GFR > 60. RADIATION DOSE: CT Rad equipment meets quality standard of care and radiation dose reduction techniq ues were employed. CTDIvol: 17.0 mGy. DLP: 474 mGy-cm. . LIMITATIONS: None. FINDINGS: SKULL BASE: Intact. MAJOR SALIVARY GLANDS: No solid or cystic masses. No inflammatory changes. LYMPHADENOPATHY: No adenopathy. MUCOSAL MASSES OR ASYMMETRY: No mucosal masses or asymmetry. LARYNX/CORDS: No abnormal findings. VASCULAR STRUCTURES: The major vessels are patent. LUNG APICES: Clear. BONES: Intact. THYROID: Enlarged thyroid with some hypodense nodules measuring approximately 1 cm in size. PARANASAL SINUSES: Clear. OTHER: No other significant finding. IMPRESSION: Enlarged thyroid with some hypodense nodules measuring approximately 1 cm in size. No o ther significant findings. TECHNICAL DOCUMENTATION: JOB ID: [id number] Quality ID # [id number]: Final reports with documentation of one or more dose reduction techniques (e.g., Au tomated exposure control, adjustment of the mA and/or kV according to patient size, use of iterative reconstruction technique) 2010 [employer]- All Rights Reserved Reading location - IP/workstation name: [email or web address]
[2019-02-01] MEDS ORDERED: PREDNISONE 20 MG TABLET PO ONE (14:04)
[2019-02-01 14:22] VITALS: BP 102/72
== END 2019-02-01 14:22 | disposition home or self-care (01) ==
LOC: ER 10:36
DX: E04.9 Nontoxic goiter, unspecified (principal); J02.9 Acute pharyngitis, unspecified; R13.10 Dysphagia, unspecified; M54.2 Cervicalgia; R61 Generalized hyperhidrosis; Z88.0 Allergy status to penicillin; Z88.2 Allergy status to sulfonamides; Z88.5 Allergy status to narcotic agent; Z88.8 Allergy status to other drugs, medicaments and biological substances
CPT/HCPCS: 99283; 96374; 36415; 87070; 87880; 84443; 84703; 85025; 80053; 70491; J1885

== ENCOUNTER 2019-03-18 17:05 | Emergency (ER) | payer MEDICARE, MEDICAID ==
[2019-03-18 17:16] VITALS: BP 140/93
--- NOTE | 2019-03-18 17:51 | ER Document Report ---
ED Medical Screen (RME) - General Chief Complaint: Chest Pain Stated Complaint: CHEST PAIN Primary Care Provider: LASHONDA JO MD [Primary Care Provider] - Follow up as needed TRAVEL OUTSIDE OF THE [place] IN LAST 30 DAYS: No - HPI Notes: 03/18/19 17:49 Patient is a 39-year-old female with a history of bipolar, anxiety, depression who presents complaining of left-sided chest pain that she has experienced back in December when she was here and evaluated and diagnosed with chest wall pain. Patient states that the pain is similar and began yesterday and has been constant since. Patient states that pushing in the area and movement makes the pain worse. Patient states that she has been under some stress lately and that has not helped. She has no SI/HI. She is otherwise eating and drinking without difficulty. She is urinating normally and having normal bowel movements. No other concerns or complaints. Denies any prolonged immobilization, distance travel, recent surgery/trauma, personal cancer history, hormone use, smoking, or previous DVT/PE. Denies FONTAINE, fever, neck pain, URI, SOB, Abd pain, n/v/d, dysuria, back pain, or rash. I have treated and performed a rapid initial assessment of this patient. A comprehensive ED assessment and evaluation of the patient, analysis of test results and completion of medical decision making process will be conducted by additional ED providers. PHYSICAL EXAMINATION: GENERAL: Well-appearing, well-nourished and in no acute distress. A&Ox4. Answers questions appropriately. Chest: Reproducible tenderness to palpation of the left chest wall. LUNGS: Breath sounds clear to auscultation bilaterally and equal. No wheezes rales or rhonchi. HEART: Regular rate and rhythm without murmurs, rubs, gallops. Extremities: No cyanosis, clubbing, or edema b/l. No lower extremity asymmetry. Rani negative bilaterally. NEUROLOGICAL: Normal speech, normal gait. PSYCH: Normal mood, normal affect. - Related Data Allergies/Adverse Reactions: amoxicillin trihydrate [From Augmentin] Allergy (Severe, Verified 02/01/19 10:37) rash and swelling asenapine maleate [From Saphris] Allergy (Severe, Verified 02/01/19 10:37) suicidal ideation Potassium Clavulanate * [From Augmentin] Allergy (Severe, Verified 02/01/19 10:37) rash and swelling Sulfa (Sulfonamide Antibiotics) Allergy (Mild, Verified 02/01/19 10:37) codeine [Codeine] Allergy (Unknown, Verified 02/01/19 10:37) rash sulfur [From Sulfur-8] Allergy (Unknown, Verified 02/01/19 10:37) Hallucinations Past Medical History Pulmonary Medical History: Denies: Hx Asthma Neurological Medical History: Reports: Hx Migraine Renal/ Medical History: Denies: Hx Peritoneal Dialysis Musculoskeltal Medical History: Reports Hx Arthritis, Reports Hx Musculoskeletal Deformity, Reports Hx Musculoskeletal Trauma Psychiatric Medical History: Reports: Hx Anxiety, Hx Bipolar Disorder, Hx Depression - anxiety Traumatic Medical History: Reports: Hx Fractures - Arm Past Surgical History: Reports: Hx Section - x2, Hx Cholecystectomy, Hx Gynecologic Surgery - tubal, Hx Oral Surgery - [place] teeth, Hx Tubal Ligation - Immunizations Immunizations up to date: Yes Hx Diphtheria, Pertussis, Tetanus Vaccination: Yes Physical Exam - Vital signs Vitals: Temp Pulse Resp BP Pulse Ox 98.2 F 85 18 140/93 H 99 03/18/19 17:15 03/18/19 17:15 03/18/19 17:15 03/18/19 17:15 03/18/19 17:15 Course - Vital Signs Vital signs: Temp Pulse Resp BP Pulse Ox 98.2 F 85 18 140/93 H 99 03/18/19 17:15 03/18/19 17:15 03/18/19 17:15 03/18/19 17:15 03/18/19 17:15 Doctor's Discharge - Discharge Referrals: LASHONDA JO MD [Primary Care Provider] - Follow up as needed
--- NOTE | 2019-03-18 18:15 | RADIOLOGY REPORT (SQ) ---
EXAM DESCRIPTION: CHEST SINGLE VIEW COMPLETED DATE/TIME: 03/18/2019 6:07 pm REASON FOR STUDY: CP COMPARISON: 01/13/2019 EXAM PARAMETERS: NUMBER OF VIEWS: One view. TECHNIQUE: Single frontal radiographic view of the chest acquired. RADIATION DOSE: NA LIMITATIONS: None. FINDINGS: LUNGS AND PLEURA: No opacities, masses or pneumothorax. No pleural effusion. MEDIASTINUM AND HILAR STRUCTURES: No masses. Contour normal. HEART AND VASCULAR STRUCTURES: Heart normal in size. Normal vasculature. BONES: No acute findings. HARDWARE: None in the chest. OTHER: No other significant finding. IMPRESSION: NO ACUTE RADIOGRAPHIC FINDING IN THE CHEST. TECHNICAL DOCUMENTATION: JOB ID: [id number] [employer]- All Rights Reserved Reading location - IP/workstation name: [email or web address]
[2019-03-18 18:39] LABS: ALANINE AMINOTRANSFERASE 29 U/L (9-52); ALBUMIN 4.9 g/dL (3.5-5.0); ALKALINE PHOSPHATASE 78 U/L (38-126); ANION GAP 11 (5-19); ASPARTATE AMINO TRANSFERASE 26 U/L (14-36); BILIRUBIN,DIRECT 0.3 mg/dL (0.0-0.4); BILIRUBIN,TOTAL 0.4 mg/dL (0.2-1.3); BLOOD UREA NITROGEN 10 mg/dL (7-20); CALCIUM 10.1 mg/dL (8.4-10.2); CARBON DIOXIDE 27 mmol/L (22-30); CHLORIDE 102 mmol/L (98-107); GLUCOSE 82 mg/dL (75-110); POTASSIUM 4.1 mmol/L (3.6-5.0); SODIUM 139.8 mmol/L (137-145); TOTAL PROTEIN 8.1 g/dL (6.3-8.2)
[2019-03-18 21:06] LABS: ABSOLUTE BASOPHILS # (AUTO) 0.1 10^3/uL (0.0-0.2); ABSOLUTE EOSINOPHILS # (AUTO) 0.2 10^3/uL (0.0-0.6); ABSOLUTE LYMPHOCYTES (AUTO) 3.1 10^3/uL (0.5-4.7); ABSOLUTE MONOCYTES (AUTO) 0.9 10^3/uL (0.1-1.4); ABSOLUTE NEUT (AUTO) 7.3 10^3/uL (1.7-8.2); BASOPHILS % (AUTO) 0.7 % (0-2); EOSINOPHILS % (AUTO) 2.1 % (0-6); HEMATOCRIT 44.6 % (36.0-47.0); HEMOGLOBIN 14.7 g/dL (12.0-15.5); LYMPHOCYTES % (AUTO) 26.6 % (13-45); MEAN CORPUSCULAR HEMOGLOBIN 27.7 pg (27.0-33.4); MEAN CORPUSCULAR HGB CONC 32.8 g/dL (32.0-36.0); MEAN CORPUSCULAR VOLUME 84 fl (80-97); MONOCYTES % (AUTO) 7.6 % (3-13); PLATELET COUNT 289 10^3/uL (150-450); RED CELL DISTRIBUTION WIDTH 14.5 % (11.5-14.0); TOTAL CELLS COUNTED % (AUTO) 100 %; WHITE BLOOD COUNT 11.6 10^3/uL (4.0-10.5)
--- NOTE | 2019-03-18 22:02 | ER Document Report ---
ED Cardiac - General Chief Complaint: Chest Pain Stated Complaint: CHEST PAIN Time Seen by Provider: 03/18/19 17:51 Primary Care Provider: LASHONDA JO MD [Primary Care Provider] - Follow up in 3-5 days Notes: Patient is a 39-year-old female who presents emergency department with a chief complaints of left-sided chest pain. Her symptoms started yesterday. She was not doing anything in particular and denies any physical activity or doing anything out of the ordinary. She states that when she presses on her chest the chest pain is worse. Nothing in particular makes it better. She has a past medical history of bipolar, depression, and anxiety. She also states that she has been on phentermine for the past few months. TRAVEL OUTSIDE OF THE [place] IN LAST 30 DAYS: No - Related Data Allergies/Adverse Reactions: amoxicillin trihydrate [From Augmentin] Allergy (Severe, Verified 02/01/19 10:37) rash and swelling asenapine maleate [From Saphris] Allergy (Severe, Verified 02/01/19 10:37) suicidal ideation Potassium Clavulanate * [From Augmentin] Allergy (Severe, Verified 02/01/19 10:37) rash and swelling Sulfa (Sulfonamide Antibiotics) Allergy (Mild, Verified 02/01/19 10:37) codeine [Codeine] Allergy (Unknown, Verified 02/01/19 10:37) rash sulfur [From Sulfur-8] Allergy (Unknown, Verified 02/01/19 10:37) Hallucinations Past Medical History - Social History Smoking Status: Never Smoker Chew tobacco use (# tins/day): No Frequency of alcohol use: None Drug Abuse: None Family History: Reviewed & Not Pertinent Patient has suicidal ideation: No Patient has homicidal ideation: No Pulmonary Medical History: Denies: Hx Asthma Neurological Medical History: Reports: Hx Migraine Renal/ Medical History: Denies: Hx Peritoneal Dialysis Musculoskeletal Medical History: Reports Hx Arthritis, 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 Denies recent unintentional weight loss. Denies fever, chills, or sweats. EENT: Denies eye, ear, throat, or mouth pain, discharge, or symptoms. Denies nasal or sinus congestion. CARDIOVASCULAR: See HPI. RESPIRATORY: Denies shortness of breath, cough, congestion, difficulty breathing, or wheezing. GASTROINTESTINAL: Denies nausea, vomiting, and diarrhea. Denies abdominal pain. Denies constipation. GENITOURINARY: Denies difficulty urinating, burning, blood in urine, urgency or frequency. MUSCULOSKELETAL: Denies neck and back pain. Denies joint pain or swelling. SKIN: Denies rash, itchiness, or lesions HEMATOLOGIC : Denies easy bruising or bleeding. LYMPHATIC: Denies swollen, painful, enlarged glands. NEUROLOGICAL: Denies no numbness or tingling denies weakness. Denies headache. Denies altered mental status. Denies alteration in speech. PSYCHIATRIC: Denies stress, anxiety, alteration in sleep patterns, or depression. All other systems reviewed and negative. Physical Exam - Vital signs Vitals: Temp Pulse Resp BP Pulse Ox 98.2 F 85 18 140/93 H 99 03/18/19 17:15 03/18/19 17:15 03/18/19 17:15 03/18/19 17:15 03/18/19 17:15 - Notes Notes: PHYSICAL EXAMINATION: GENERAL: Appears well, healthy, well-nourished, no acute distress. HEAD: Normocephalic, atraumatic. EYES: PERRL, conjunctiva normal, all extraocular movements intact, sclera nonicteric ENT: Moist mucous membranes. NECK: Supple, no noticeable swelling, redness, rash. Normal range of motion. LUNGS: Equal breath sounds bilaterally and clear to auscultation. No wheezes rales or rhonchi. CARDIOVASCULAR: S1-S2, regular rate, regular rhythm. Radial pulses 2+, normal. Reproducible chest pain upon palpation of left side of chest and under excellent area. ABDOMEN: Normoactive bowel sounds. Soft, nontender, no guarding, no rebound tenderness, and no masses palpated. EXTREMITIES: Normal strength and range of motion, no pitting or edema. No cyanosis. NEUROLOGICAL: Moves all extremities upon command. Strength 5/5 in all extremities. PSYCH: Normal mood, normal affect. SKIN: Warm, dry. No rash, lesions, ulcerations noted. Normal skin turgor. Course - Re-evaluation Re-evalutation: 03/18/19 22:03 Differential diagnosis for the patient's chest pain includes ischemic chest pain (STEMI, NSTEMI, or unstable angina), pulmonary embolism, aortic dissection, pericarditis, chest wall pain. Based off patient's physical exam, history, EKG that does not show ST depressions or elevations, and troponin, the patient's heart score is 3 or less. Chest x-ray is negative for pneumonia, widened mediastinum, or pneumothorax. I do not suspect aortic dissection due to history, symmetrical pulses, chest x- ray, and vital signs. CBC and chemistries are both unremarkable. Troponin is negative. HEART Score: History:0 EK Age:0 Risk Factors:0 Troponin:0 Total: 0 I have discussed with the patient the risk factors, age, and diagnostic studies. Based on these factors, the likelihood of the patient's chest pain being from a heart attack is a very low. Patient is able to make decisions for themself and verbalized understanding that their chest pain is most likely not due to heart attack. The patient has chosen to follow-up with their primary care provider in regards to their chest pain. Verbal instructions for return to the emergency department was given, and patient verbalized understanding and will be discharged. I have a feeling the patient's chest pain may be due to her anxiety and also p ossibly her phentermine use. She will follow-up with her primary care provider in regards to this visit. Documentation was completed using voice recognition software, therefore there may be some unintended grammatical or punctual errors. 0 - Vital Signs Vital signs: Temp Pulse Resp BP Pulse Ox 98.2 F 85 18 140/93 H 99 03/18/19 17:15 03/18/19 17:15 03/18/19 17:15 03/18/19 17:15 03/18/19 17:15 - Laboratory Result Diagrams: 03/18/19 20:50 03/18/19 18:13 Laboratory results interpreted by me: 03/18/19 20:50 WBC 11.6 H RBC 5.30 H RDW 14.5 H - EKG Interpretation by Me Additional EKG results interpreted by me: 03/18/19 22:05 Sinus rhythm. Rate 87. AK 100. QRS 78; QT 380; QTc 457. No ST elevations or depressions. No acute change from previous EKG done on January 13, 2019. Discharge - Discharge Clinical Impression: Costochondritis Chest pain Qualifiers: Chest pain type: other chest pain Qualified Code(s): R07.89 - Other chest pain Condition: Stable Disposition: HOME, SELF-CARE Additional Instructions: You are seen today in the emergency department for chest pain. Your labs are all normal. Your chest x-ray is normal, your EKG is normal. Please follow-up with your primary care provider in regards to this visit. Please have him evaluate your phentermine use. You can take Tylenol 1000 mg 6 hours as needed for your pain. Please return if you have worsening symptoms, shortness of breath, difficulty breathing, or have any symptoms that are worrisome to you. Referrals: LASHONDA JO MD [Primary Care Provider] - Follow up in 3-5 days
[2019-03-18] MEDS ORDERED: ACETAMINOPHEN 325 MG TABLET PO ONE (22:05)
--- NOTE | 2019-03-19 07:50 | EKG REPORT ---
SEVERITY:- NORMAL ECG - SINUS RHYTHM : Confirmed by: Francine Amaya MD 19-Mar-2019 07:48:49
== END 2019-03-18 22:45 | disposition home or self-care (01) ==
LOC: ER 17:05
DX: M94.0 Chondrocostal junction syndrome [Tietze] (principal); Z88.0 Allergy status to penicillin; Z88.2 Allergy status to sulfonamides; Z88.6 Allergy status to analgesic agent; Z98.51 Tubal ligation status; Z90.49 Acquired absence of other specified parts of digestive tract
CPT/HCPCS: 93005; 99285; 36415; 85025; 80053; 84484; 71045; 93010; A9270

== ENCOUNTER 2020-03-04 07:49 | Day surgery (SDC) | payer MEDICARE, MEDICAID ==
--- NOTE | 2020-03-01 11:06 | RADIOLOGY REPORT (SQ) ---
EXAM DESCRIPTION: CHEST PA/LATERAL IMAGES COMPLETED DATE/TIME: 03/01/2020 10:39 am REASON FOR STUDY: PRE-OP COMPARISON: PA view of the chest from 03/18/2019. EXAM PARAMETERS: NUMBER OF VIEWS: Two views. TECHNIQUE: PA and lateral views of the chest were obtained. RADIATION DOSE: NA. LIMITATIONS: None. FINDINGS: LUNGS AND PLEURA: No consolidation, pleural effusion or pneumothorax. MEDIASTINUM AND HILAR STRUCTURES: No mediastinal or hilar contour abnormality. HEART AND VASCULAR STRUCTURES: The cardiac silhouette and pulmonary vasculature are within normal castaneda its. BONES: No acute findings. HARDWARE: Cholecystectomy clips. OTHER: No other finding. IMPRESSION: No acute cardiopulmonary process. TECHNICAL DOCUMENTATION: JOB ID: [id number] 2010 [employer]- All Rights Reserved Reading location - IP/workstation name: [email or web address]
[2020-03-01 11:09] LABS: HEMATOCRIT 41.8 % (36.0-47.0); HEMOGLOBIN 14.4 g/dL (12.0-15.5); MEAN CORPUSCULAR HGB CONC 34.4 g/dL (32.0-36.0); MEAN CORPUSCULAR VOLUME 84 fl (80-97); PLATELET COUNT 253 10^3/uL (150-450); RED BLOOD COUNT 4.96 10^6/uL (3.72-5.28); RED CELL DISTRIBUTION WIDTH 15.2 % (11.5-14.0); WHITE BLOOD COUNT 13.2 10^3/uL (4.0-10.5)
[2020-03-01 11:20] LABS: APPEARANCE,URINE CLOUDY; BILIRUBIN,URINE NEGATIVE (NEGATIVE); COLOR,URINE YELLOW; GLUCOSE, URINE NEGATIVE (NEGATIVE); KETONES,URINE NEGATIVE (NEGATIVE); LEUKOCYTE ESTERASE,URINE NEGATIVE (NEGATIVE); NITRITE,URINE NEGATIVE (NEGATIVE); PROTEIN,URINE NEGATIVE (NEGATIVE); URINE SPECIFIC GRAVITY 1.005; UROBILINOGEN,URINE NEGATIVE mg/dL (<2.0)
[2020-03-01 11:37] LABS: ALBUMIN 4.3 g/dL (3.5-5.0); ALKALINE PHOSPHATASE 74 U/L (38-126); ANION GAP 12 (5-19); ASPARTATE AMINO TRANSFERASE 25 U/L (14-36); BILIRUBIN,TOTAL 0.4 mg/dL (0.2-1.3); BLOOD UREA NITROGEN 16 mg/dL (7-20); CALCIUM 9.7 mg/dL (8.4-10.2); CARBON DIOXIDE 25 mmol/L (22-30); CHLORIDE 96 mmol/L (98-107); GLUCOSE 93 mg/dL (75-110); POTASSIUM 4.5 mmol/L (3.6-5.0); TOTAL PROTEIN 7.3 g/dL (6.3-8.2)
--- NOTE | 2020-03-01 22:32 | EKG REPORT ---
SEVERITY:- NORMAL ECG - SINUS RHYTHM : Confirmed by: Lilliana Dawson 01-Mar-2020 22:32:06
[~2020-03-04 07:49] MED LIST: CEFAZOLIN 1 GM/D5W RTU 1 GM/50 ML RTUPB IV PRN; LACTATED RINGERS 1000 ML IV PRN; LIDOCAINE 0.5% INJ-PF (5 MG/ML) 50 ML SDV SUBCUT PRN
[2020-03-04] MEDS ORDERED: FENTANYL CITRATE INJ/PF 100 MCG/2 ML AMPUL ONE (07:54)
[2020-03-04] MEDS ORDERED: PROPOFOL INJ 200 MG/20 ML VIAL IV ONE (07:55)
[2020-03-04] MEDS ORDERED: HYDROMORPHONE HCL INJ/PF 2 MG/ML AMPULE ONE (07:55)
[2020-03-04] MEDS ORDERED: MIDAZOLAM 2 MG/2 ML INJ ONE ×2 (07:55→09:05)
[2020-03-04] MEDS ORDERED: FAMOTIDINE INJ/PF 20 MG/2 ML SDV IV ONE ×2 (08:36→10:00)
[2020-03-04] MEDS ORDERED: GLYCOPYRROLATE 1 MG/5 ML VIAL ONE (09:38)
[2020-03-04] MEDS ORDERED: ONDANSETRON HCL INJ/PF 4 MG/2 ML SDV ONE (09:38)
[2020-03-04] MEDS ORDERED: DEXAMETHASONE SOD PHOSPHATE INJ 4 MG/1 ML VIAL ONE (09:38)
[2020-03-04] MEDS ORDERED: KETOROLAC TROMETHAMINE 60 MG/2 ML SDV ONE (09:38)
[2020-03-04] MEDS ORDERED: NEOSTIGMINE METHYLSULFATE 10 MG/10 ML VIAL ONE (09:38)
[2020-03-04] MEDS ORDERED: SUCCINYLCHOLINE CHLORIDE INJ 200 MG/10 ML VIAL ONE (09:38)
[2020-03-04] MEDS ORDERED: ROCURONIUM BROMIDE INJ 50 MG/5 ML VIAL IV ONE (09:38)
[2020-03-04] MEDS ORDERED: CEFAZOLIN 1 GM/D5W RTU 1 GM/50 ML RTUPB IV ONE (09:49)
[2020-03-04] MEDS ORDERED: MIDAZOLAM 2 MG/2 ML INJ IV ONE (10:00)
[2020-03-04] MEDS ORDERED: PROMETHAZINE HCL INJ 25 MG/1 ML VIAL IV PRN ×2 (11:04→12:57)
[2020-03-04] MEDS ORDERED: ONDANSETRON HCL INJ/PF 4 MG/2 ML SDV IV PRN (11:04)
[2020-03-04] MEDS ORDERED: FENTANYL CITRATE INJ/PF 100 MCG/2 ML AMPUL IV PRN ×3 (11:04)
[2020-03-04] MEDS ORDERED: DIPHENHYDRAMINE HCL 50 MG/ML VIAL IV PRN (11:04)
[2020-03-04] MEDS ORDERED: MEPERIDINE HCL/PF INJ 25 MG/1 ML DISP.SYRIN IV PRN (11:04)
[2020-03-04] MEDS ORDERED: ACETAMINOPHEN 1,000 MG/100 ML RTUPB IV PRN (12:57)
[2020-03-04] MEDS ORDERED: DIPH/PERTUSS(ACELL)/TETANUS VAC/PF 0.5 ML SYR (>=10YO) IM PRN (12:57)
[2020-03-04] MEDS ORDERED: OXYCODONE-ACETAMINOPHEN 5-325 MG TABLET PO PRN ×2 (12:57)
[2020-03-04] MEDS ORDERED: MEASLES,MUMPS&RUBELLA VACC/PF 0.5 ML VIAL SUBCUT PRN (12:57)
[2020-03-04] MEDS ORDERED: RINGERS SOLUTION,LACTATED 1,000 ML IV PRN (12:57)
[2020-03-04] MEDS ORDERED: ACETAMINOPHEN 325 MG TABLET PO PRN (12:57)
--- NOTE | 2020-03-04 13:07 | Operative Report ---
Operative Report DATE OF SURGERY: 03/04/20 PREOPERATIVE DIAGNOSIS: abnormal uterine bleeding, leiomyoma, pelvic pain POSTOPERATIVE DIAGNOSIS: Same OPERATION: Robotic hysterectomy with bilateral salpingectomy and lysis of adhesions SURGEON: IRENE SCHROEDER 1ST UNDERGROUND HEAVY EQUIPMENT OPERATOR: AURORA WOLFF ANESTHESIA: GA TISSUE REMOVED OR ALTERED: Uterus cervix and bilateral fallopian tubes COMPLICATIONS: None ESTIMATED BLOOD LOSS: 300 cc INTRAOPERATIVE FINDINGS: Enlarged uterus to approximately 14 weeks with a 4-1/2 cm fibroid posteriorly, stenotic cervix, several adhesions of the omentum to the right adnexa, benign appearing ovarian cyst on the right. Normal appearing ovary on the left PROCEDURE: Patient was taken to the operating room prepared and draped in normal sterile fashion in dorsolithotomy position. Under sterile conditions a Gerber catheter was placed to gravity. Speculum was placed into the vagina and the cervix was grasped on the anterior lip with a single-tooth tenaculum. The cervix was then dilated to accommodate a medium V care uterine manipulator. Manipulate it was placed gloves were changed and attention was turned to the upper portion of the case. A 2-1/2 cm umbilical skin incision was made 11 blade and this was carried through to the underlying layer of fascia with the same 11 blade. It was grasped to Fern's acted with Yepez's. New cavity was entered bluntly. A GelPort was placed in a normal fashion the camera port and air seal in the appropriate locations. Shah was then inflated with approximately 2 L of CO2 gas. The camera was then introduced into the peritoneal cavity through the camera port and the patient was placed in steep Trendelenburg. The above findings were noted. Under direct visualization two 5 mm ports were placed approximately 10 cm on either side of the umbilicus. The robot was then docked with the vessel sealer placed on the patient's left and the monopolar scissors placed placed on the patient's right. I then unscrubbed and set at the robotic console beginning with the left adnexa fallopian tube was transected from the uterus using the vessel sealer and monopolar scissors as needed. The fallopian tube was then removed through the assistance port. The ovarian ligament was then transected using the vessel sealer. The uterine artery was skeletonized using blunt dissection and ligated using the vessel sealer down to the level of the external cervical os. The bladder flap was then begun using monopolar scissors and blunt dissection over the V care cup noted through the mucosa. Attention was then turned to the right adnexa where the fallopian tube was transected in a similar fashion. The utero-ovarian ligament was transected using the vessel sealer. The Uterine artery was then transected using the vessel sealer and skeletonized using blunt dissection. The vessel sealer was again used to completely transect the uterine artery down to the level of the external cervical os. The bladder flap was completed using similar sharp and blunt dissection. Once the bladder was felt to be adequately away from the lower uterine segment, the colpotomy was begun on the anterior aspect of the cervix following the outline of the V care cup mucosa. The cup was followed in a circumferential fashion completely around the cervix estimate was completely freed. The specimen was then removed through the vaginal defect. The instruments were then changed to a [employer] needle recycling collections driver and pro-grasp. AV lock needle was introduced through the assistance port. The lock needle was used to close the vaginal cuff and hemostasis. The needle was then removed through the assistance port. The peritoneal cavity was carefully inspected the ureters were noted to both be peristalsing and there was no signs of hydroureter. The robot was then undocked. The fascia was closed at the umbilical skin incision seen 0 Vicryl 3 skin incisions were closed using 4-0 Vicryl. Sponge lap and needle counts were correct x2 and the patient was taken to recovery in stable condition.
[2020-03-04] MEDS: MORPHINE SULFATE 10 MG/ML INJ IV PRN ×6 (13:15→23:27)
[2020-03-04] MEDS ORDERED: MORPHINE SULFATE 10 MG/ML INJ ONE (13:23)
[2020-03-04] MEDS ORDERED: DIPHENHYDRAMINE HCL 50 MG/ML VIAL ONE (13:27)
[2020-03-04] MEDS ORDERED: KETOROLAC TROMETHAMINE INJ/PF 30 MG/1 ML SDV IV SCH (14:00)
[2020-03-04] MEDS: SIMETHICONE 80 MG TAB.CHEW PO PRN ×2 (16:00→23:37)
[2020-03-04] MEDS ORDERED: DOCUSATE SODIUM 100 MG CAPSULE PO SCH (18:00)
[2020-03-04] MEDS ORDERED: FLUCONAZOLE 100 MG TABLET PO ONE (19:45)
[2020-03-04] MEDS: KETOROLAC TROMETHAMINE INJ/PF 30 MG/1 ML SDV IV SCH (21:21)
[2020-03-04] MEDS: METRONIDAZOLE 500 MG/NS RTU 500 MG/100 ML RTUPB IV SCH (21:22)
[2020-03-05] MEDS ORDERED: DIPHENHYDRAMINE HCL 50 MG/ML VIAL ONE (00:23)
[2020-03-05] MEDS: DIPHENHYDRAMINE HCL 50 MG/ML VIAL IV PRN ×2 (00:44→07:52)
[2020-03-05] MEDS: KETOROLAC TROMETHAMINE INJ/PF 30 MG/1 ML SDV IV SCH (06:05)
[2020-03-05] MEDS ORDERED: DIPHENHYDRAMINE HCL 50 MG CAPSULE PO PRN (08:21)
[2020-03-05 08:22] VITALS: BP 120/64
[2020-03-05] MEDS: METRONIDAZOLE 500 MG/NS RTU 500 MG/100 ML RTUPB IV SCH (09:04)
--- NOTE | 2020-03-05 09:57 | PDOC DISCHARGE SUMMARY ---
Impression - Admit/DC Date/PCP Admission Date/Primary Care Provider: LASHONDA JO Discharge Date: 03/05/20 - Discharge Diagnosis (1) Leiomyoma Is this a current diagnosis for this admission?: Yes (2) Pelvic pain Is this a current diagnosis for this admission?: Yes (3) Abnormal uterine bleeding Is this a current diagnosis for this admission?: Yes - Assessment Summary: underwent RATLH w/o complications. normal post operative course - Additional Information Resuscitation Status: Full Code Discharge Diet: As Tolerated Discharge Activity: Balance Activity w/Rest, No Driving, Pelvic Rest, No tub bath, Walk Frequently Referrals: IRENE SCHROEDER MD [ACTIVE STAFF] - 03/17/20 1:30 pm (Call the office for questions and concerns.) LASHONDA JO MD [Primary Care Provider] - Prescriptions: Diphenhydramine HCl [Benadryl 50 mg Capsule] 50 mg PO Q6HP PRN #30 capsule PRN Reason: Ibuprofen [Ibu] 800 mg PO TID PRN #60 PRN Reason: Oxycodone HCl/Acetaminophen [Percocet 5-325 mg Tablet] 1 tab PO Q6 PRN #30 PRN Reason: Pain Scale Of 3 Home Medications: Cholecalciferol (Vitamin D3) [Vitamin D3 1000 Unit Tablet] 1,000 unit PO DAILY 03/04/20 Ferrous Sulfate [Feosol 325 mg Tablet] 325 mg PO DAILY 03/04/20 Fluticasone Propionate [Flonase Allergy Relief] 1 spray PO PRN PRN 03/04/20 Hydrochlorothiazide 12.5 mg PO DAILY 03/04/20 Loratadine [Claritin 10 mg Tablet] 10 mg PO DAILY 03/04/20 Tizanidine HCl 2 mg PO TID PRN 03/04/20 Valacyclovir HCl [Valtrex 500 mg Tablet] 500 mg PO DAILY 03/04/20 Diphenhydramine HCl [Benadryl 50 mg Capsule] 50 mg PO Q6HP PRN #30 capsule 03/05/20 Ibuprofen [Ibu] 800 mg PO TID PRN #60 03/05/20 Oxycodone HCl/Acetaminophen [Percocet 5-325 mg Tablet] 1 tab PO Q6 PRN #30 02/17 History of Present Illiness History of Present Illness: PATRICK WYMAN is a 40 year old female Physical Exam - Physical Exam Vital Signs: Temp Pulse Resp BP Pulse Ox 97.9 F 100 16 120/64 98 03/05/20 07:10 03/05/20 07:10 03/05/20 07:10 03/05/20 07:10 03/05/20 07:10 Intake & Output 03/04/20 03/05/20 03/06/20 06:59 06:59 06:59 Intake Total 4190 Output Total 2105 Balance 2085 Weight 97.5 kg Results Laboratory Results: WBC 13.2 10^3/uL (4.0-10.5) H 03/01/20 10:12 RBC 4.96 10^6/uL (3.72-5.28) 03/01/20 10:12 Hgb 14.4 g/dL (12.0-15.5) 03/01/20 10:12 Hct 41.8 % (36.0-47.0) 03/01/20 10:12 MCV 84 fl (80-97) 03/01/20 10:12 MCH 29.0 pg (27.0-33.4) 03/01/20 10:12 MCHC 34.4 g/dL (32.0-36.0) 03/01/20 10:12 RDW 15.2 % (11.5-14.0) H 03/01/20 10:12 Plt Count 253 10^3/uL (150-450) 03/01/20 10:12 Sodium 132.9 mmol/L (137-145) L 03/01/20 10:12 Potassium 4.1 mmol/L (3.6-5.0) 03/04/20 08:50 Chloride 96 mmol/L (98-107) L 03/01/20 10:12 Carbon Dioxide 25 mmol/L (22-30) 03/01/20 10:12 Anion Gap 12 (5-19) 03/01/20 10:12 BUN 16 mg/dL (7-20) 03/01/20 10:12 Creatinine 1.10 mg/dL (0.52-1.25) 03/01/20 10:12 Est GFR ( Amer) > 60 (>60) 03/01/20 10:12 Est GFR (MDRD) Non-Af 55 (>60) L 03/01/20 10:12 Glucose 93 mg/dL (75-110) 03/01/20 10:12 Calcium 9.7 mg/dL (8.4-10.2) 03/01/20 10:12 Total Bilirubin 0.4 mg/dL (0.2-1.3) 03/01/20 10:12 Direct Bilirubin 0.0 mg/dL (0.0-0.4) 03/01/20 10:12 Neonat Total Bilirubin Not Reportable 03/01/20 10:12 Neonat Direct Bilirubin Not Reportable 03/01/20 10:12 Neonat Indirect Bili Not Reportable 03/01/20 10:12 AST 25 U/L (14-36) 03/01/20 10:12 ALT 19 U/L (<35) 03/01/20 10:12 Alkaline Phosphatase 74 U/L (38-126) 03/01/20 10:12 Total Protein 7.3 g/dL (6.3-8.2) 03/01/20 10:12 Albumin 4.3 g/dL (3.5-5.0) 03/01/20 10:12 Urine Color YELLOW 03/01/20 10:12 Urine Appearance CLOUDY 03/01/20 10:12 Urine pH 6.0 (5.0-9.0) 03/01/20 10:12 Ur Specific [place] 1.005 03/01/20 10:12 Urine Protein NEGATIVE mg/dL (NEGATIVE) 03/01/20 10:12 Urine Glucose (UA) NEGATIVE mg/dL (NEGATIVE) 03/01/20 10:12 Urine Ketones NEGATIVE mg/dL (NEGATIVE) 03/01/20 10:12 Urine Blood NEGATIVE (NEGATIVE) 03/01/20 10:12 Urine Nitrite NEGATIVE (NEGATIVE) 03/01/20 10:12 Urine Bilirubin NEGATIVE (NEGATIVE) 03/01/20 10:12 Urine Urobilinogen NEGATIVE mg/dL (<2.0) 03/01/20 10:12 Ur Leukocyte Esterase NEGATIVE (NEGATIVE) 03/01/20 10:12 Urine WBC (Auto) 1 /HPF 03/01/20 10:12 Urine RBC (Auto) 10 /HPF 03/01/20 10:12 Urine Bacteria (Auto) TRACE /HPF 03/01/20 10:12 Squamous Epi Cells Auto 22 /HPF 03/01/20 10:12 Urine Mucus (Auto) RARE /LPF 03/01/20 10:12 Urine Yeast (Budding) PRESENT /HPF 03/01/20 10:12 Urine Ascorbic Acid NEGATIVE (NEGATIVE) 03/01/20 10:12 Urine HCG, Qual NEGATIVE (NEGATIVE) 03/04/20 08:25 COVID-19 Source NASOPHARYNGEAL 03/01/20 10:12 COVID-19 ([place]) NOT DETECTED 03/01/20 10:12 Blood Type B POSITIVE 03/01/20 10:12 Antibody Screen NEGATIVE 03/01/20 10:12 Impressions: Chest X-Ray 03/01/20 00:00 IMPRESSION: No acute cardiopulmonary process. Stroke Is this a Stroke Patient?: No Acute Heart Failure - Is this a Heart Failure Patient?: No
[2020-03-05] MEDS ORDERED: PRENATAL VITAMIN W DHA CAPSULE PO SCH (10:00)
[2020-03-05] MEDS ORDERED: HYDROCHLOROTHIAZIDE 12.5 MG TABLET PO SCH (10:00)
[2020-03-05] MEDS ORDERED: FLUCONAZOLE 100 MG TABLET PO SCH (10:00)
[2020-03-05] MEDS ORDERED: PHENAZOPYRIDINE HCL 200 MG TABLET PO SCH (10:00)
[2020-03-05] MEDS ORDERED: VALACYCLOVIR HCL 500 MG TABLET PO SCH ×2 (10:00→11:00)
[2020-03-05] MEDS ORDERED: IBUPROFEN 800 MG TABLET PO SCH (12:00)
== END 2020-03-05 12:30 | disposition home or self-care (01) ==
LOC: OROUT 07:49 → 2N 14:15 → OROUT 14:24 → 2N 14:24 → OROUT 03-05 12:30
PROVIDERS: ATTEND Obstetrics & Gynecology
DX: D25.9 Leiomyoma of uterus, unspecified (principal); N93.9 Abnormal uterine and vaginal bleeding, unspecified; N85.2 Hypertrophy of uterus; N88.2 Stricture and stenosis of cervix uteri; K66.0 Peritoneal adhesions (postprocedural) (postinfection); I10 Essential (primary) hypertension; N83.8 Other noninflammatory disorders of ovary, fallopian tube and broad ligament; N72 Inflammatory disease of cervix uteri; Z88.5 Allergy status to narcotic agent; E66.9 Obesity, unspecified; Z03.818 Encounter for observation for suspected exposure to other biological agents ruled out
CPT/HCPCS: 58571; S2900; 36415; 71046; 80053; 81001; 81025; 840; 84132; 85027; 86850; 86900; 86901; 87635; 88307; 93005; 93010; 94799; A4649; C9803; J0330; J0690; J1100; J1170; J1200; J1885; J2250; J2270; J2405; J2704; J2710; J3010; J3490; J7120; S0028

== ENCOUNTER → 2020-06-28 | Outpatient (CLI) | payer MEDICARE, MEDICAID ==
[2020-06-28 12:51] LABS: ABSOLUTE BASOPHILS # (AUTO) 0.1 10^3/uL (0.0-0.2); ABSOLUTE EOSINOPHILS # (AUTO) 0.2 10^3/uL (0.0-0.6); ABSOLUTE LYMPHOCYTES (AUTO) 3.3 10^3/uL (0.5-4.7); ABSOLUTE MONOCYTES (AUTO) 0.6 10^3/uL (0.1-1.4); ABSOLUTE NEUT (AUTO) 5.5 10^3/uL (1.7-8.2); BASOPHILS % (AUTO) 0.8 % (0-2); HEMATOCRIT 45.3 % (36.0-47.0); HEMOGLOBIN 15.6 g/dL (12.0-15.5); LYMPHOCYTES % (AUTO) 34.3 % (13-45); MEAN CORPUSCULAR HEMOGLOBIN 29.3 pg (27.0-33.4); MEAN CORPUSCULAR HGB CONC 34.4 g/dL (32.0-36.0); MEAN CORPUSCULAR VOLUME 85 fl (80-97); MONOCYTES % (AUTO) 5.7 % (3-13); PLATELET COUNT 275 10^3/uL (150-450); RED BLOOD COUNT 5.33 10^6/uL (3.72-5.28); RED CELL DISTRIBUTION WIDTH 14.1 % (11.5-14.0); SEGMENTED NEUTROPHILS % (AUTO) 57.2 % (42-78); TOTAL CELLS COUNTED % (AUTO) 100 %; WHITE BLOOD COUNT 9.6 10^3/uL (4.0-10.5)
[2020-06-28 13:20] LABS: ALBUMIN 4.6 g/dL (3.5-5.0); ALKALINE PHOSPHATASE 75 U/L (38-126); ANION GAP 9 (5-19); ASPARTATE AMINO TRANSFERASE 23 U/L (14-36); BILIRUBIN,DIRECT 0.3 mg/dL (0.0-0.4); BILIRUBIN,TOTAL 0.9 mg/dL (0.2-1.3); BLOOD UREA NITROGEN 10 mg/dL (7-20); CALCIUM 10.2 mg/dL (8.4-10.2); CARBON DIOXIDE 29 mmol/L (22-30); CHLORIDE 100 mmol/L (98-107); GLUCOSE 111 mg/dL (75-110); POTASSIUM 3.9 mmol/L (3.6-5.0); TOTAL PROTEIN 7.3 g/dL (6.3-8.2)
[2020-06-28 13:35] LABS: FREE T4 (FREE THYROXINE) 1.1 ng/dL (0.78-2.19)
[2020-06-28 15:39] LABS: THYROID STIMULATING HORMONE 0.99 uIU/mL (0.47-4.68)
== END ==
LOC: OD 11:57
PROVIDERS: ATTEND Physician Assistant
DX: F33.2 Major depressive disorder, recurrent severe without psychotic features (principal); Z79.899 Other long term (current) drug therapy
CPT/HCPCS: 36415; 80053; 82652; 84439; 84443; 85025